=== PATIENT | female | born 1940 | race Caucasian/White ===

== ENCOUNTER 2017-12-16 14:22 | Outpatient (CLI) | payer MEDICARE, OTHER | END 2017-12-16 14:23 | disposition home or self-care (01) | LOC: BICMAMMO 14:22 | PROVIDERS: ATTEND Internal Medicine Hematology & Oncology | DX: Z08 Encounter for follow-up examination after completed treatment for malignant neoplasm (principal); Z85.3 Personal history of malignant neoplasm of breast; Z80.3 Family history of malignant neoplasm of breast | CPT/HCPCS: 77066; G0279 ==

== ENCOUNTER 2018-11-17 11:48 | Inpatient (IN) | payer MEDICARE, OTHER ==
[2018-11-17 12:41] LABS: #Basophils 0.1 thou/uL (0.0-0.2); #Eosinphils 0.2 thou/uL (0.0-0.7); #Lymphocytes 1.7 thou/uL (1.20-3.40); #Monocytes 0.9 thou/uL (0.11-0.59); #Neutrophils 12.6 thou/uL (1.40-6.50); %Basophils 0.4 % (0.0-1.0); %Eosinophils 1.1 % (0.0-10.0); %Lymphocytes 10.7 % (21.0-51.0); %Neutrophils 81.7 % (42.0-75.0); Hemoglobin 12.7 g/dL (12.0-16.0); Mean Corpuscular HGB CONC 33.5 g/dL (32.0-36.0); Mean Corpuscular Hemoglobin 31.9 pg (27.0-31.0); Mean Corpuscular Volume 95.2 fL (78.0-98.0); Mean Platelet Volume 6.9 fL (7.4-10.4); Platelet Count 369 thou/uL (130-400); RBC Distribution Width 11.3 % (11.5-14.5); Red Blood Cell (RBC) Count 3.99 mill/uL (4.20-5.40); White Blood Cell (WBC) Count 15.4 thou/uL (4.8-10.8)
[2018-11-17 12:58] LABS: ALT (SGPT) 42 U/L (8-55); AST (SGOT) 40 U/L (5-34); Albumin 3.9 g/dL (3.4-4.8); Alkaline Phosphatase 115 U/L (40-150); Anion Gap 9 mmol/L (10-20); BUN (Urea Nitrogen) 20 mg/dL (9.8-20.1); Bilirubin, Total 0.6 mg/dL (0.2-1.2); Calc. Creatinine Clearance 0 mL/min (70-130); Calcium 10.4 mg/dL (7.8-10.44); Carbon Dioxide 27 mmol/L (23-31); Chloride 101 mmol/L (98-107); Estimated GFR-MDRD 50; Globulin 3.3 g/dL (2.4-3.5); Glucose 111 mg/dL (83-110); Lipase 18 U/L (8-78); Potassium 3.7 mmol/L (3.5-5.1); Protein, Total 7.2 g/dL (6.0-8.3); Sodium 133 mmol/L (136-145)
[2018-11-17 13:47] LABS: Bilirubin Negative (Negative); Blood, Urine Negative (Negative); Clarity Clear (Clear); Glucose, Urine (Dipstick) Normal (Negative); Leukocyte 250 Leu/uL (Negative); Nitrite Negative (Negative); Protein, Urine (Dipstick) 10 mg/dL (Neg-Trace); RBC/HPF 0-3 HPF (0-3); Squamous Epithelial 0-3 HPF (0-3); Urobilinogen Normal mg/dL (Less than 2)
--- NOTE | 2018-11-17 14:06 | CT ---
CT ABDOMEN WITH CONTRAST CT PELVIS WITH CONTRAST: DATE: 11/17/2018 HISTORY: 78-year-old female with left lower quadrant abdominal pain and fever COMPARISON: None available TECHNIQUE: IV injection of iodinated contrast media: administered. Oral contrast media:Not administered FINDINGS: Numerous diverticula throughout sigmoid:. Moderate pericolonic fat stranding adjacent to sigmoid colo n and tiny amount of adjacent free fluid. Tiny amount of free fluid in the dependent portion of the pelvic cavity. No small bowel dilation. 1.6 cm right renal lower pole anterior parenchymal round lesi on with density of 14 Hounsfield units. Similar size lesion in anterior parenchyma of left renal upper-midpole with density of 16 Hounsfield units. 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 S mall renal cell carcinomas are less likely but not completely ruled out. No hydronephrosis. Atherosclerotic calcification without aneurysm of abdominal aorta. No mass or inflammation identified involving pancreas. No adrenal nodule. Liver and spleen unremarkable. No pericholecystic edema. What appears to be a nondilated appendix. No pneumoperitoneum. Lung bases are grossly clear. Levoscol iosis of lumbar spine with multilevel high-grade degenerative disc disease. IMPRESSION: 1. Evidence for colonic diverticulitis involving sigmoid colon. (In general for all cases of divertic ulitis, colonoscopy is recommended after the acute phase to rule out any possible underlying colon cancer, unless the patient has had a reasonably recent colonoscopy already). 2. High-grade lumbar spondylosis associated with levoscoliosis. 3. Approximately 1.6 cm round lesions, one in each kidney. Favored to represent hemorrhagic renal cys ts. Renal cell carcinoma significantly less likely. In order to rule out renal cell carcinoma, serial follow-up CTs of abdomen with and without contrast (renal mass protocol) is recommended, begin veronika in 6 months.
[2018-11-17 14:11] LABS: Bacteria/HPF 1+ HPF (None Seen)
[2018-11-17] MEDS ORDERED: metroNIDAZOLE 500 MG/100 ML BAG ONE (14:39)
[2018-11-17] MEDS ORDERED: HYDROcodone/Acetaminophen 7.5/325 mg Tablet PO PRN (14:49)
[2018-11-17] MEDS ORDERED: Ondansetron PF 4 MG/2 ML Vial IVP PRN (14:49)
[2018-11-17] MEDS ORDERED: Acetaminophen 325 MG TAB PO PRN (14:49)
[2018-11-17] MEDS ORDERED: Calcium Carbonate 500 MG ChewTAB PO PRN (14:49)
[2018-11-17] MEDS ORDERED: HYDROcodone/Acetaminophen 5/325 mg Tablet PO PRN (14:49)
[2018-11-17] MEDS ORDERED: Ondansetron ODT 4 MG TAB PO PRN (14:49)
[2018-11-17] MEDS ORDERED: hydrALAZINE 20 MG/ML VIAL SLOW IVP PRN (14:53)
[2018-11-17] MEDS ORDERED: Docusate 100 MG CAP PO PRN (14:53)
[2018-11-17] MEDS ORDERED: diphenhydrAMINE 25 MG CAP PO PRN (14:53)
[2018-11-17] MEDS ORDERED: ISOVUE-370 76%-LOCM 1 ML ONE (15:27)
--- NOTE | 2018-11-17 15:46 | PDOC.HHP ---
Hospitalist HPI - History of Present Illness Abdominal pain History of Present Illness: 78 year old female with PMHx of Afib on Eliquis, CHF, HTN, Breast CA s/p radiation/ chemo, and hypothyoid presents with abdominal pain. Patient with worsening abdominal pain, fever, and diarrhea over the past few days. Denies blood or black in stool. Has never been formally diagnosed with diverticulitis. No sick contacts. No bowel surgeries in the past. Patient was admitted at [facility] last weeks with a 4 day stay for UTI and fever. Patient was sent home with antibiotics though she does not know the names at this time. No other significant positive ROS. No chest pain, shortness of breath, palpitations, change in vision, syncope. Hospitalist ROS - Review of Systems All other systems reviewed; all pertinent +/- noted in HPI/Subj (A 10 point ROS conducted and negative aside of what mentioned in HPI.) Hospitalist History - Past Medical History Source: patient Cardiac: reports: AFIB, HTN, Valve insufficiency Pulmonary: reports: congestive heart failure. denies: CVA/TIA/stroke, COPD, heart attack AUDIO VISUAL SPECIALIST: denies: Seizure, TIA Gastrointestinal: denies: GI bleed, Inflam bowel disease Heme/Onc: reports: Cancer (Breast S/p partial mastectomy, chemo/ radiation.) Hepatobiliary: denies: Cholelithiasis, Hep A/B/C Psych: denies: Psychosis, Schizophrenia Musculoskeletal: reports: Osteoarthritis Rheumatologic: denies: Rheumatoid arthritis Infectious Disease: reports: Other (Recent UTI) Renal/: reports: UTI. denies: Chronic renal failure Endocrine: reports: Hypothyroidism. denies: Diabetes - Past Surgical History Past Surgical History: reports: Breast Biopsy (partial mastectomy), Cataract Removal, Total Knee Replacement - Family History Family History: reports: hypertension. denies: diabetes mellitus - Social History Smoking Status: Former smoker Tobacco Type: cigarettes Alcohol: reports: None Drugs: reports: none Living Situation: With Family Activity level: independent ambulation - Exam General Appearance: ill appearing Eye: PERRL, anicteric sclera Eye - other findings: EOMI ENT: no oropharyngeal lesions, moist mucosa Neck: supple, symmetric Heart: no gallops, no rubs, normal peripheral pulses Heart - other findings: S1 and S2 present, loud systolic murmur Respiratory: CTAB, no wheezes, no rales, no ronchi, normal chest expansion Gastrointestinal: soft, non-tender, non-distended, no guarding, no rigidity Extremities: no edema Skin: no lesions, no rashes Neurological: CN's grossly intact, no weakness, no focal deficits Musculoskeletal: normal tone, no muscle wasting Psychiatric: normal affect, A&O x 3 Hospitalist Results - Labs Result Diagrams: 11/17/18 12:23 11/17/18 12:23 Lab results: WBC 15.4 thou/uL (4.8-10.8) H 11/17/18 12:23 Hgb 12.7 g/dL (12.0-16.0) 11/17/18 12:23 Hct 38.0 % (36.0-47.0) 11/17/18 12:23 MCV 95.2 fL (78.0-98.0) 11/17/18 12:23 Plt Count 369 thou/uL (130-400) 11/17/18 12:23 Neutrophils % 81.7 % (42.0-75.0) H 11/17/18 12:23 Sodium 133 mmol/L (136-145) L 11/17/18 12:23 Potassium 3.7 mmol/L (3.5-5.1) 11/17/18 12:23 Chloride 101 mmol/L (98-107) 11/17/18 12:23 Carbon Dioxide 27 mmol/L (23-31) 11/17/18 12:23 BUN 20 mg/dL (9.8-20.1) 11/17/18 12:23 Creatinine 1.07 mg/dL (0.6-1.1) 11/17/18 12:23 Glucose 111 mg/dL (83-110) H 11/17/18 12:23 Lactic Acid 1.3 mmol/L (0.5-2.2) 11/17/18 14:05 Calcium 10.4 mg/dL (7.8-10.44) 11/17/18 12:23 Total Bilirubin 0.6 mg/dL (0.2-1.2) 11/17/18 12:23 AST 40 U/L (5-34) H 11/17/18 12:23 ALT 42 U/L (8-55) 11/17/18 12:23 Alkaline Phosphatase 115 U/L (40-150) 11/17/18 12:23 Serum Total Protein 7.2 g/dL (6.0-8.3) 11/17/18 12:23 Albumin 3.9 g/dL (3.4-4.8) 11/17/18 12:23 Lipase 18 U/L (8-78) 11/17/18 12:23 Urine Ketones Negative mg/dL (Negative) 11/17/18 13:29 Urine Blood Negative (Negative) 11/17/18 13:29 Urine Nitrite Negative (Negative) 11/17/18 13:29 Ur Leukocyte Esterase 250 Bri/uL (Negative) A 11/17/18 13:29 Urine RBC 0-3 HPF (0-3) 11/17/18 13:29 Urine WBC 11-20 HPF (0-3) A 11/17/18 13:29 Ur Squamous Epith Cells 0-3 HPF (0-3) 11/17/18 13:29 Urine Bacteria 1+ HPF (None Seen) 11/17/18 13:29 - Radiology Interpretation CT scan - abdomen Status: image reviewed by ca Hospitalist H&P A/P - Problem (1) Acute diverticulitis Code(s): K57.92 - DVTRCLI OF INTEST, PART UNSP, W/O PERF OR ABSCESS W/O BLEED Status: Acute (2) Abdominal pain Code(s): R10.9 - UNSPECIFIED ABDOMINAL PAIN Status: Acute (3) Fever Code(s): R50.9 - FEVER, UNSPECIFIED Status: Acute (4) Sepsis Code(s): A41.9 - SEPSIS, UNSPECIFIED ORGANISM Status: Acute (5) HTN (hypertension) Code(s): I10 - ESSENTIAL (PRIMARY) HYPERTENSION Status: Chronic (6) CHF (congestive heart failure) Code(s): I50.9 - HEART FAILURE, UNSPECIFIED Status: Chronic (7) Afib Code(s): I48.91 - UNSPECIFIED ATRIAL FIBRILLATION Status: Chronic (8) Hypothyroid Code(s): E03.9 - HYPOTHYROIDISM, UNSPECIFIED Status: Chronic (9) Breast cancer Status: Resolved - Plan Plan: Plan: Admit to medical/ surgical unit IV ABX specific for gut kim associated with acute diverticulitis IV Flagyl/ Levaquin CT abdomen noted Will need outpatient C-scope in 6-8 weeks Patient had appointment with cardiology tomorrow, will request courtesy consult Recent echo in outpatient clinic for murmur, loud systolic murmur sounds like aortic stenosis - though not symptomatic at this time Continue home meds Pain control Replace electrolytes as needed GI and DVT PPX
[2018-11-17] MEDS ORDERED: Morphine 4 MG/ML VIAL ONE (16:44)
[2018-11-17] MEDS ORDERED: Ondansetron PF 4 MG/2 ML Vial ONE (16:44)
[2018-11-17 17:54] VITALS: BMI 27.9
[2018-11-17] MEDS ORDERED: Apixaban 5 MG TAB PO SCH (21:00)
[2018-11-17] MEDS ORDERED: Morphine 2 MG/ML SYRINGE SLOW IVP SCH (21:30)
[2018-11-17] MEDS ORDERED: metroNIDAZOLE 500 MG in Premix Bag 1 BAG IVPB SCH (22:00)
[2018-11-18] MEDS ORDERED: Calcium Carbonate 500 MG ChewTAB PO PRN (04:00)
[2018-11-18] MEDS ORDERED: Ondansetron PF 4 MG/2 ML Vial IVP PRN (04:01)
[2018-11-18] MEDS ORDERED: Ondansetron ODT 4 MG TAB PO PRN (04:01)
[2018-11-18] MEDS ORDERED: diphenhydrAMINE 25 MG CAP PO PRN (04:01)
[2018-11-18] MEDS ORDERED: hydrALAZINE 20 MG/ML VIAL SLOW IVP PRN (04:01)
[2018-11-18] MEDS ORDERED: Docusate 100 MG CAP PO PRN (04:01)
[2018-11-18] MEDS: Levothyroxine Sodium 100 MCG TAB PO SCH (05:29)
[2018-11-18] MEDS: metroNIDAZOLE 500 MG in Premix Bag 1 BAG IVPB SCH ×3 (05:29→21:58)
[2018-11-18 05:39] LABS: #Basophils 0.1 thou/uL (0.0-0.2); #Eosinphils 0.6 thou/uL (0.0-0.7); #Lymphocytes 2.7 thou/uL (1.20-3.40); #Neutrophils 8.2 thou/uL (1.40-6.50); %Basophils 0.6 % (0.0-1.0); %Eosinophils 4.5 % (0.0-10.0); %Lymphocytes 21.4 % (21.0-51.0); %Monocytes 7.7 % (0.0-10.0); %Neutrophils 65.7 % (42.0-75.0); Hemoglobin 11.1 g/dL (12.0-16.0); Mean Corpuscular HGB CONC 32.3 g/dL (32.0-36.0); Mean Corpuscular Hemoglobin 31.3 pg (27.0-31.0); Mean Corpuscular Volume 96.7 fL (78.0-98.0); Mean Platelet Volume 6.7 fL (7.4-10.4); Platelet Count 346 thou/uL (130-400); RBC Distribution Width 11.2 % (11.5-14.5); Red Blood Cell (RBC) Count 3.56 mill/uL (4.20-5.40); White Blood Cell (WBC) Count 12.4 thou/uL (4.8-10.8)
[2018-11-18] MEDS ORDERED: Levothyroxine Sodium 100 MCG TAB PO SCH (06:00)
[2018-11-18 06:10] LABS: Anion Gap 9 mmol/L (10-20); BUN (Urea Nitrogen) 14 mg/dL (9.8-20.1); Calc. Creatinine Clearance 79 mL/min (70-130); Calcium 9.9 mg/dL (7.8-10.44); Carbon Dioxide 27 mmol/L (23-31); Chloride 103 mmol/L (98-107); Estimated GFR-MDRD 73; Glucose 85 mg/dL (83-110); Potassium 4.9 mmol/L (3.5-5.1); Sodium 134 mmol/L (136-145)
[2018-11-18] MEDS: Acetaminophen 325 MG TAB PO PRN ×2 (07:48→16:00)
[2018-11-18] MEDS: Apixaban 5 MG TAB PO SCH ×2 (07:49→20:34)
[2018-11-18] MEDS ORDERED: Losartan 25 MG TAB PO SCH ×5 (09:00→21:00)
[2018-11-18] MEDS ORDERED: Enoxaparin Sodium 40 MG/0.4 ML SYRINGE SC SCH (09:00)
[2018-11-18] MEDS ORDERED: Anastrozole 1 MG TAB PO SCH ×2 (09:00)
[2018-11-18] MEDS ORDERED: Carvedilol 25 MG TAB PO SCH ×2 (09:00)
[2018-11-18] MEDS: HYDROcodone/Acetaminophen 7.5/325 mg Tablet PO PRN ×2 (09:53→20:37)
--- NOTE | 2018-11-18 12:14 | PDOC.HOSPP ---
- Subjective Subjective: Seen and examined. Less abdominal pain. Low grade fever overnight. Sitting up in bed feeling dizzy, low BP this AM. Unable to work with PT. Will Adjust BP regimen. - Objective Vital Signs & Weight: Vital Signs (12 hours) Temp Pulse Resp BP BP BP BP 11/18/18 11:34 97.9 F 71 18 97/63 11/18/18 10:39 87/56 L 85/53 L 11/18/18 09:03 98.8 F 20 104/67 11/18/18 07:45 11/18/18 07:27 99.2 F 80 18 130/78 11/18/18 04:52 99.0 F 79 16 107/66 11/18/18 01:00 99.7 F H 11/18/18 00:16 100.2 F H 90 16 117/73 Pulse Ox 11/18/18 11:34 94 L 11/18/18 10:39 11/18/18 09:03 11/18/18 07:45 94 L 11/18/18 07:27 92 L 11/18/18 04:52 96 11/18/18 01:00 11/18/18 00:16 92 L Weight Weight 184 lb I&O: 11/17/18 11/18/18 11/19/18 06:59 06:59 06:59 Intake Total 800 Balance 800 Result Diagrams: 11/18/18 05:07 11/18/18 05:06 Radiology Reviewed by me: Yes (CT abdomen) Hospitalist ROS - Review of Systems All other systems reviewed; all pertinent +/- noted in HPI/Subj - Medication Medications: Active Medications Generic Name Dose Route Start Last Admin Trade Name Freq PRN Reason Stop Dose Admin Acetaminophen 650 mg 11/18/18 04:00 11/18/18 07:48 Tylenol PO 650 mg Q4H PRN Administration Headache/Fever/Mild Pain (1-3) Hydrocodone Bitart/Acetaminophen 1 tab 11/18/18 04:00 11/18/18 09:53 [place] 7.5/325 PO 1 tab Q4H PRN Administration Severe Pain (7-10) Apixaban 5 mg 11/18/18 09:00 11/18/18 07:49 Eliquis PO 5 mg BID JAIRO Administration Carvedilol 25 mg 11/18/18 09:00 11/18/18 07:48 Coreg PO 25 mg DAILY JAIRO Administration Metronidazole 500 mg/ Device 100 mls @ 100 mls/hr 11/18/18 06:00 11/18/18 05: 29 IVPB 100 mls Q8HR JAIRO Administration Levothyroxine Sodium 100 mcg 11/18/18 06:00 11/18/18 05:29 Synthroid PO 100 mcg 0600 JAIRO Administration Pantoprazole Sodium 40 mg 11/18/18 09:00 11/18/18 07:48 Protonix PO 40 mg DAILY JAIRO Administration Sertraline HCl 100 mg 11/18/18 09:00 11/18/18 07:48 Zoloft PO 100 mg DAILY JAIRO Administration - Exam General Appearance: NAD, awake alert Eye: PERRL Eye - other findings: EOMI ENT: normocephalic atraumatic, moist mucosa Neck: supple, symmetric, no lymphadenopathy Heart: RRR, no gallops, no rubs, normal peripheral pulses Heart - other findings: Loud systolic murmur Respiratory: CTAB, no wheezes, no rales, no ronchi, normal chest expansion Gastrointestinal: soft, non-distended, normal bowel sounds, no palpable masses, no guarding, no rigidity, tender to palpation Extremities: no cyanosis, no edema Skin: no lesions, no rashes Neurological: CN's grossly intact, no weakness, no focal deficits Musculoskeletal: generalized weakness Psychiatric: normal affect, A&O x 3 Hosp A/P (1) Acute diverticulitis Code(s): K57.92 - DVTRCLI OF INTEST, PART UNSP, W/O PERF OR ABSCESS W/O BLEED Status: Acute (2) Abdominal pain Code(s): R10.9 - UNSPECIFIED ABDOMINAL PAIN Status: Acute (3) Fever Code(s): R50.9 - FEVER, UNSPECIFIED Status: Acute (4) Sepsis Code(s): A41.9 - SEPSIS, UNSPECIFIED ORGANISM Status: Acute (5) HTN (hypertension) Code(s): I10 - ESSENTIAL (PRIMARY) HYPERTENSION Status: Chronic (6) CHF (congestive heart failure) Code(s): I50.9 - HEART FAILURE, UNSPECIFIED Status: Chronic (7) Afib Code(s): I48.91 - UNSPECIFIED ATRIAL FIBRILLATION Status: Chronic (8) Hypothyroid Code(s): E03.9 - HYPOTHYROIDISM, UNSPECIFIED Status: Chronic (9) Breast cancer Status: Resolved - Plan Plan: Med/ surg unit Responding to IV flagyl and Levaquin WBC downtrending Low grade fever overnight Clinically improving CT abd/pelvis noted Will need outpatient C-scope in 6-8 weeks Cardiology consult, recommendations appreciated Decreased both Carvedilol and Losartan as BP was 85 systolic when I was in the room this morning and patient is feeling dizzy/ light headed Echo recently completed in outpatient clinic, loud systolic murmur concerning for Aortic stenosis Continue home meds as able Pain control Replace electrolytes as needed GI and DVT PPX
[2018-11-18] MEDS: Carvedilol 6.25 MG TAB PO SCH (17:21)
[2018-11-18] MEDS: Anastrozole 1 MG TAB PO SCH (20:34)
--- NOTE | 2018-11-19 00:49 | CON ---
DATE OF CONSULTATION: 11/18/2018 INDICATION FOR CONSULTATION: This is a 78-year-old female with a history of intermittent atrial fibrillation, who has undergone ablation several times. She also has history of hypertension, but is now having episodes of hypotension. She had a recent urinary tract infection and also has a history of diverticulitis and intermittent fevers. HISTORY OF PRESENT ILLNESS: This is a very pleasant 78-year-old female, who has been followed by Dr. Antony Salguero, has presented to the hospital. She states she recently spent several days at [facility] due to urinary tract infection and other possible viral infection. This was actually last week. She then went home, apparently was not doing better, she then was transferred to [facility] where she is now being seen due to her history of atrial fibrillation. At this time, she remains in a regular rhythm. She has no complaints from a cardiac standpoint. Her blood pressure has been on the low side normally. She is hypertensive. She is doing otherwise quite well. She has had 3 ablations in the past for atrial fibrillation and now remains stable. She does state that occasionally she does get some intermittent palpitations, but otherwise is stable. She does have an aortic murmur, which was most likely mild aortic valve sclerosis and also possibly mild mitral valve regurgitation. Her last echocardiogram was last month. We will try to obtain those records from [facility] from Dr. Antony Salguero's office. She has had some left leg DVTs several times and the left leg is larger than the right, but otherwise she remains stable and is unremarkable and has no cardiac complaints at this time. PAST MEDICAL HISTORY: Please refer to the notes dictated by my nurse practitioner. SOCIAL HISTORY: Please refer to the notes dictated by my nurse practitioner. FAMILY HISTORY: Please refer to the notes dictated by my nurse practitioner. REVIEW OF SYSTEMS: Please refer to the notes dictated by my nurse practitioner. MEDICATIONS: Please refer to the notes dictated by my nurse practitioner. ALLERGIES: PLEASE REFER TO THE NOTES DICTATED BY MY NURSE PRACTITIONER. PHYSICAL EXAMINATION: GENERAL: Reveals a well-developed, well-nourished female, in no acute distress. VITAL SIGNS: Temperature is 99.9, blood pressure is 133/80, heart rate is 94 beats per minute and is regular, respiratory rate is 20. HEENT: Unremarkable. CHEST: Clear to auscultation. CARDIOVASCULAR: Reveals regular rate and rhythm. She does have a systolic murmur that is noted above the aortic area radiating throughout the entire precordium and also systolic murmur at the apex. ABDOMEN: Soft. She does have some mild tenderness in the lower abdominal area. Positive bowel sounds are present. EXTREMITIES: Showed no clubbing or cyanosis. The left leg is larger than the right leg, but no significant edema was noted. NEUROLOGIC: She appears to be stable. LABORATORY DATA AND EKGS: Please refer to the notes dictated by the nurse practitioner. IMPRESSION: Intermittent atrial fibrillation for which she remains in sinus rhythm at this time. We will continue her present medications unless she becomes n.p.o. Also, we will continue with her Coreg as well as the Eliquis unless an operation is indicated, then we will need to stop the at least 24 hours. For her other medical diagnosis, she is to be treated by the medical staff. As far as her aortic valve stenosis, we will await the echocardiogram. I do not believe this is critical at this time and she is asymptomatic. Job ID: [id number]
[2018-11-19] MEDS: Levothyroxine Sodium 100 MCG TAB PO SCH (05:06)
[2018-11-19] MEDS: metroNIDAZOLE 500 MG in Premix Bag 1 BAG IVPB SCH ×3 (05:10→21:58)
[2018-11-19 06:04] LABS: #Basophils 0.1 thou/uL (0.0-0.2); #Eosinphils 0.5 thou/uL (0.0-0.7); #Lymphocytes 1.8 thou/uL (1.20-3.40); #Monocytes 0.7 thou/uL (0.11-0.59); #Neutrophils 5.8 thou/uL (1.40-6.50); %Basophils 0.7 % (0.0-1.0); %Eosinophils 5.3 % (0.0-10.0); %Lymphocytes 20.4 % (21.0-51.0); %Monocytes 7.7 % (0.0-10.0); %Neutrophils 65.9 % (42.0-75.0); Hemoglobin 11.3 g/dL (12.0-16.0); Mean Corpuscular HGB CONC 33.6 g/dL (32.0-36.0); Mean Corpuscular Hemoglobin 32.5 pg (27.0-31.0); Mean Corpuscular Volume 96.6 fL (78.0-98.0); Mean Platelet Volume 6.8 fL (7.4-10.4); Platelet Count 332 thou/uL (130-400); RBC Distribution Width 11.2 % (11.5-14.5); Red Blood Cell (RBC) Count 3.47 mill/uL (4.20-5.40); White Blood Cell (WBC) Count 8.7 thou/uL (4.8-10.8)
[2018-11-19 06:28] LABS: Anion Gap 10 mmol/L (10-20); BUN (Urea Nitrogen) 10 mg/dL (9.8-20.1); Calc. Creatinine Clearance 85 mL/min (70-130); Calcium 10.2 mg/dL (7.8-10.44); Carbon Dioxide 27 mmol/L (23-31); Chloride 102 mmol/L (98-107); Estimated GFR-MDRD 78; Glucose 84 mg/dL (83-110); Potassium 4.4 mmol/L (3.5-5.1); Sodium 135 mmol/L (136-145)
[2018-11-19] MEDS: Carvedilol 6.25 MG TAB PO SCH (08:01)
[2018-11-19] MEDS: Apixaban 5 MG TAB PO SCH ×2 (08:01→20:54)
[2018-11-19] MEDS ORDERED: Carvedilol 25 MG TAB PO SCH ×2 (09:00)
[2018-11-19] MEDS: HYDROcodone/Acetaminophen 5/325 mg Tablet PO PRN ×2 (09:28→20:57)
--- NOTE | 2018-11-19 09:49 | CON ---
DATE OF CONSULTATION: PRIMARY TEST TUBE MAKER: Dr. Salguero. The patient's primary fill manager here at the [facility] is Dr. Daniela Hennessy. REASON FOR CONSULT: History of atrial fibrillation, aortic valve stenosis, continue the care. HISTORY OF PRESENT ILLNESS: Ms. Adorno is a 78-year-old female with a significant history of atrial fibrillation with atrial fibrillation ablation x3, hypertension, aortic valve insufficiency, breast cancer with left mastectomy with chemo and radiation, UTI, and hypothyroidism. The patient presented to the emergency department here for worsening of abdominal pain, fever, and diarrhea over the past few days. The patient was found to have a diverticulitis here. Prior to this admission, the patient was admitted at the [facility] last week for 4 days for the UTI and fever. The patient was sent home with antibiotic. The patient denied palpitation, fluttering, dizziness, lightheadedness, chest pain, shortness of breath, or any other cardiac complaints. The patient's blood pressure at home has been 100 to 110s with heart rate of 70s to 80s. She has seen Dr. Salguero at the [facility] for significant medical history of atrial fibrillation, hypertension, and aortic valve stenosis per patient. The patient had echocardiogram done at Dr. Salguero's last month for a cardiac murmur, and the patient had a stress test a few years ago which was normal per the patient. Prior to this admission and during initial Cardiology assessment, the patient denied chest pain, heaviness, sinus, shortness of breath, palpitation, fluttering in her chest, shortness of breath, fatigue, or any other cardiac complaints. She started having abdomen discomfort 2 weeks ago. Till then, she was very active. She does water aerobics 3 times a week prior to this admission. PAST MEDICAL HISTORY: Atrial fibrillation with ablation x3, last ablation was 2 to 3 years ago, hypertension, valve insufficiency, left breast cancer, osteoarthritis, UTI, hypothyroidism, and a cyst in the kidney, and she is supposed to see Dr. Moore for the finding. PAST SURGICAL HISTORY: Left breast biopsy and partial mastectomy, cataract removal, left total knee replacement, thyroidectomy. The patient had atrial fibrillation ablation x3, last one 2 to 3 years ago. FAMILY HISTORY: The patient's father has history of CVA x2. The patient's mother has a history of pacemaker placement and congestive heart failure. The patient's sister due to colon cancer. SOCIAL HISTORY: She is . She is living alone, but she has 2 children, who are living well. One of her children living in town that is 2 houses away from her address. She is an ex tobacco abuser, quit in 2010. She used to smoke 3 to 4 cigarettes a day. She drinks 1 glass around once a month at most. The patient used to exercise water aerobic exercises 3 times a week until 2 weeks ago when she started having abdominal discomfort. She drinks a Diet Coke a day. ALLERGIES: NO KNOWN DRUG ALLERGY. HOME MEDICATIONS: 1. Zoloft 100 mg once a day. 2. Losartan 100 mg once a day. 3. Synthroid 100 mcg once a day. 4. Nexium 20 mg once a day. 5. Carvedilol CR 20 mg once a day, not 25 mg once a day. 6. Arimidex 1 mg once a day. 7. Excedrin Extra Strength capsule 250 mg daily as needed. 8. Eliquis, she is supposed to take an Eliquis here, 5 mg twice a day. REVIEW OF SYSTEMS: A 12-point review of systems negative unless otherwise mentioned in the HPI. PHYSICAL EXAMINATION: VITAL SIGNS: Blood pressure 1 o'clock today is 90/39, temperature 97.9, pulse is 71, O2 saturation 94% on room air, and respiratory rate 18. GENERAL: The patient is alert and oriented x4, not in acute distress. HEAD: Normocephalic and atraumatic. EYES: Extraocular muscle movement intact. ENT AND MOUTH: Nasal and oral mucosa moist without lesion. NECK: Supple. Normal range of motion. No JVD. LUNGS: Clear to auscultate bilaterally. No wheezing, rales, or rhonchi noted. CARDIOVASCULAR: Regular rate and rhythm. Normal S1, S2. There is no S3 or S4. There is significant murmur to the bilateral mediastinal borders which radiate to the right carotid arteries. EXTREMITIES: 2+ pulses in the bilateral upper and lower extremities. No edema in lower extremities. The patient denied claudication. ABDOMEN: Bowel sounds are very hypoactive. The patient refused to palpate her stomach because they are very tender at this moment. SKIN: Warm and dry. No rash, lesion, or erythema noted. NEUROLOGIC: The patient is alert and oriented x4. Not in any acute distress. PSYCHIATRIC: The patient's mood is appropriate. LABORATORY DATA: WBC 12.4, hemoglobin 11.1, hematocrit 34.4, and platelet 346. Sodium 134, potassium 4.9, BUN 14, creatinine 0.77, and calcium 9.9. AST 40, ALT 42. Urinalysis showing leukocytes 250 and urine wbc's 11 to 20, but no nitrite or blood in the urine. Abdomen and pelvis CT scan shows colonic diverticulitis, but she has not had any BM since this admission. High-grade lumbar spondylosis associated with levoscoliosis, 1.6 cm round lesion, possible hemorrhagic renal cyst. A 12-point EKG at the ER shows sinus rhythm with heart rate of 75, no ST-segment change or T-wave inversion. ASSESSMENT AND PLAN: 1. Hypotension. According to the patient, she takes the carvedilol CR 20 mg which is equivalent to the 6.25 mg twice a day. However, she took 25 mg this morning, which is a possible reason her blood pressure is low this morning. The patient's last blood pressure was 113 on the systolic side. The patient denied dizziness or lightheadedness at this moment, but the patient felt weakness in this morning due to the hypotension. Medication was changed to 6.25 mg twice a day, which is equivalent to the carvedilol CR 20 mg once a day. Due to the griggs, the patient likes to have carvedilol twice a day instead of once a day if possible when patient discharged from the hospital. The patient's losartan was already decreased to 50 mg once a day, it is going to be tonight. We would like to continue to monitor her medication and vital signs. 2. History of atrial fibrillation. The patient's heart rate is regular to auscultate. A 12-lead EKG at the ER shows sinus rhythm with heart rate of 75. The patient has been on carvedilol and Eliquis 5 mg twice a day. The patient denied any blood in the stool or urine. She fell at home. We would like to continue current medication at this moment. 3. Hypotension. Her blood pressure today is stable at this moment. The patient's medications are already adjusted. Hopefully, the patient's vital signs are stable through the night. 4. New finding of diverticulitis. The patient has not had diarrhea since the patient admitted to this hospital, but the patient still continued to complain of the discomfort in the lower extremities, which is managed by patient's primary care doctor. 5. Urinary tract infection. The patient has been on antibiotic, which is managed by primary care doctor. 6. Hypothyroidism. She is on thyroid medicine at this moment. 7. Valve insufficiency. We are going to get the echo results from Dr. Salguero's office as soon as possible. Thank you very much for Cardiology Service to participate in the care of this patient. We will follow along the patient's care team and make further recommendation as appropriate. Job ID: [id number]
--- NOTE | 2018-11-19 11:15 | PDOC.CPN ---
- Subjective Date: 11/19/18 Time: 11:15 Interval history: The pt seen and examined. NO overnight events. No cardiac complaints. - Review of Systems Gastrointestinal: reports: abd pain - Objective Allergies/Adverse Reactions: Allergies Allergy/AdvReac Type Severity Reaction Status Date / Time No Known Allergies Allergy Verified 11/17/18 17:40 Visit Medications: Current Medications Acetaminophen (Tylenol) 650 mg PO Q4H PRN PRN Reason: Headache/Fever/Mild Pain (1-3) Last Admin: 11/18/18 16:00 Dose: 650 mg Hydrocodone Bitart/Acetaminophen ([place] 5/325) 1 tab PO Q4H PRN PRN Reason: Moderate Pain (4-6) Last Admin: 11/19/18 09:28 Dose: 1 tab Hydrocodone Bitart/Acetaminophen ([place] 7.5/325) 1 tab PO Q4H PRN PRN Reason: Severe Pain (7-10) Last Admin: 11/18/18 20:37 Dose: 1 tab Albuterol/Ipratropium (Duoneb) 3 ml NEB Q4H PRN PRN Reason: SOB &/or Wheezing Anastrozole (Arimidex) 1 mg PO [facility] Last Admin: 11/18/18 20:34 Dose: 1 mg Apixaban (Eliquis) 5 mg PO BID [facility] Last Admin: 11/19/18 08:01 Dose: 5 mg Calcium Carbonate (Tums) 1,000 mg PO Q4H PRN PRN Reason: Heartburn or Indigestion Carvedilol (Coreg) 6.25 mg PO BID-[facility] Last Admin: 11/19/18 08:01 Dose: 6.25 mg Diphenhydramine HCl (Benadryl) 25 mg PO Q6H PRN PRN Reason: Itching & Insomnia Docusate Sodium (Colace) 100 mg PO BIDPRN PRN PRN Reason: Constipation Hydralazine HCl (Apresoline) 10 mg SLOW IVP Q4H PRN PRN Reason: Hypertension (SBP >180) Metronidazole 500 mg/ Device 100 mls @ 100 mls/hr IVPB Q8HR COUNT INCLUDES [facility] Last Admin: 11/19/18 05:10 Dose: 100 mls Levofloxacin 500 mg/ Device 100 mls @ 100 mls/hr IVPB 1500 JAIRO Last Admin: 11/18/18 14:33 Dose: 100 mls Levothyroxine Sodium (Synthroid) 100 mcg PO 0600 COUNT [facility]CLUDES [facility] Last Admin: 11/19/18 05:06 Dose: 100 mcg Losartan Potassium (Cozaar) 50 mg PO HS COUNT [facility]CLUDES [facility] Last Admin: 11/18/18 20:36 Dose: 50 mg Miscellaneous Medication (Pharmacy To Dose) 0 each IVPB PRN PRN PRN Reason: PHARMACY TO DOSE Ondansetron HCl (Zofran Odt) 4 mg PO Q6H PRN PRN Reason: Nausea/Vomiting Ondansetron HCl (Zofran) 4 mg IVP Q6H PRN PRN Reason: Nausea/Vomiting Pantoprazole Sodium (Protonix) 40 mg PO DAILY COUNT [facility] Last Admin: 11/19/18 08:02 Dose: 40 mg Sertraline HCl (Zoloft) 100 mg PO DAILY COUNT [facility]CLUDES [facility] Last Admin: 11/19/18 08:01 Dose: 100 mg Vital Signs & Weight: Vital Signs Temp Pulse Resp BP BP BP Pulse Ox 11/19/18 08:01 152/84 H 11/19/18 08:00 94 L 11/19/18 07:25 99.7 F H 83 18 152/84 H 94 L 11/19/18 04:00 98.9 F 77 18 127/74 93 L 11/19/18 00:00 98.7 F 74 18 102/67 93 L Weight 184 lb - Physical Exam HEENT: mucus membranes moist Neck: supple neck Cardiac: regular rate and rhythm, S1/S2 Lungs: clear to auscultation - Labs Result Diagrams: 11/20/18 08:07 11/19/18 05:04 - Assessment/Plan Assessment/Plan: 1. Prox Afib with Afib RFA x3 by Dr Salguero at [facility] heart - well controlled HR; On Coreg and Eliquis 5mg BID; 2. cute diverticulitis - managed by PC 3. HTN - stable with current medication; will change Losartan from 50mg to 100mg qd 4. Valve inefficiency - waiting for Echo result 5. Hypothyroid - MAR reviewed * The pt had Echo at Dr Salguero's office 1 month ago; waiting for the result Pt. seen and eval. by me. I agree with the A/P by the [employer]. Pt. denies any cardiac complaints. Chest clear. RRR. gjmays *
--- NOTE | 2018-11-19 12:43 | PDOC.HOSPP ---
- Subjective Subjective: Seen and examined. Abdominal pain improved. Low grade temperature overnight. Breathing well on room air. Slept well. Clinically improving. - Objective Vital Signs & Weight: Vital Signs (12 hours) Temp Pulse Resp BP BP BP Pulse Ox 11/19/18 11:17 99.3 F 11/19/18 08:01 152/84 H 11/19/18 08:00 94 L 11/19/18 07:25 99.7 F H 83 18 152/84 H 94 L 11/19/18 04:00 98.9 F 77 18 127/74 93 L Weight Weight 184 lb I&O: 11/18/18 11/19/18 11/20/18 06:59 06:59 06:59 Intake Total 800 1979 Balance 800 1979 Result Diagrams: 11/19/18 05:04 11/19/18 05:04 Hospitalist ROS - Review of Systems All other systems reviewed; all pertinent +/- noted in HPI/Subj - Medication Medications: Active Medications Generic Name Dose Route Start Last Admin Trade Name Freq PRN Reason Stop Dose Admin Acetaminophen 650 mg 11/18/18 04:00 11/18/18 16:00 Tylenol PO 650 mg Q4H PRN Administration Headache/Fever/Mild Pain (1-3) Hydrocodone Bitart/Acetaminophen 1 tab 11/18/18 04:00 11/19/18 09:28 [place] 5/325 PO 1 tab Q4H PRN Administration Moderate Pain (4-6) Hydrocodone Bitart/Acetaminophen 1 tab 11/18/18 04:00 11/18/18 20:37 [place] 7.5/325 PO 1 tab Q4H PRN Administration Severe Pain (7-10) Anastrozole 1 mg 11/18/18 21:00 11/18/18 20:34 Arimidex PO 1 mg HS JAIRO Administration Apixaban 5 mg 11/18/18 09:00 11/19/18 08:01 Eliquis PO 5 mg BID JAIRO Administration Metronidazole 500 mg/ Device 100 mls @ 100 mls/hr 11/18/18 06:00 11/19/18 05: 10 IVPB 100 mls Q8HR JAIRO Administration Levofloxacin 500 mg/ Device 100 mls @ 100 mls/hr 11/18/18 15:00 11/18/18 14: 33 IVPB 100 mls 1500 JAIRO Administration Levothyroxine Sodium 100 mcg 11/18/18 06:00 11/19/18 05:06 Synthroid PO 100 mcg 0600 JAIRO Administration Losartan Potassium 50 mg 11/18/18 21:00 11/18/18 20:36 Cozaar PO 50 mg HS JAIRO Administration Pantoprazole Sodium 40 mg 11/18/18 09:00 11/19/18 08:02 Protonix PO 40 mg DAILY JAIRO Administration Sertraline HCl 100 mg 11/18/18 09:00 11/19/18 08:01 Zoloft PO 100 mg DAILY JAIRO Administration - Exam General Appearance: NAD Eye: PERRL, anicteric sclera Eye - other findings: EOMI ENT: no oropharyngeal lesions, moist mucosa Neck: supple, symmetric Heart: no gallops, no rubs, irregular Heart - other findings: Regular rate. Loud systolic murmur Respiratory: CTAB, no wheezes, no rales, no ronchi, no tachypnea Gastrointestinal: soft, non-distended, normal bowel sounds, no palpable masses, no guarding, no rigidity, tender to palpation Extremities: no edema Skin: no lesions, no rashes Neurological: CN's grossly intact, no focal deficits Musculoskeletal: normal strength, no muscle wasting Psychiatric: normal affect, A&O x 3 Hosp A/P (1) Acute diverticulitis Code(s): K57.92 - DVTRCLI OF INTEST, PART UNSP, W/O PERF OR ABSCESS W/O BLEED Status: Acute (2) Abdominal pain Code(s): R10.9 - UNSPECIFIED ABDOMINAL PAIN Status: Acute (3) Fever Code(s): R50.9 - FEVER, UNSPECIFIED Status: Acute (4) Sepsis Code(s): A41.9 - SEPSIS, UNSPECIFIED ORGANISM Status: Acute (5) HTN (hypertension) Code(s): I10 - ESSENTIAL (PRIMARY) HYPERTENSION Status: Chronic (6) CHF (congestive heart failure) Code(s): I50.9 - HEART FAILURE, UNSPECIFIED Status: Chronic (7) Afib Code(s): I48.91 - UNSPECIFIED ATRIAL FIBRILLATION Status: Chronic (8) Hypothyroid Code(s): E03.9 - HYPOTHYROIDISM, UNSPECIFIED Status: Chronic (9) Breast cancer Status: Resolved - Plan Plan: Med/ surg unit Responding to IV flagyl and Levaquin WBC normalized Low grade temperature overnight Clinically improving CT abd/pelvis noted Will need outpatient C-scope in 6-8 weeks Cardiology consult, recommendations appreciated Decreased both Carvedilol and Losartan. BP having highs and low in past 48 hours , a slow titration of medications by cardiology is appreciated. Will need a BP log and closer follow up with PCP in outpatient setting Echo recently completed in outpatient clinic, loud systolic murmur concerning for Aortic stenosis Continue home meds as able Pain control Replace electrolytes as needed GI and DVT PPX
[2018-11-19] MEDS: Anastrozole 1 MG TAB PO SCH (20:54)
[2018-11-19] MEDS: Losartan 25 MG TAB PO SCH (20:54)
[2018-11-19] MEDS ORDERED: Carvedilol 6.25 MG TAB PO SCH (21:00)
[2018-11-19] MEDS ORDERED: Carvedilol 3.125 MG TAB PO SCH (21:00)
[2018-11-20] MEDS ORDERED: Carvedilol 3.125 MG TAB PO SCH (00:30)
[2018-11-20] MEDS: Acetaminophen 325 MG TAB PO PRN ×4 (00:36→22:31)
[2018-11-20] MEDS: metroNIDAZOLE 500 MG in Premix Bag 1 BAG IVPB SCH ×3 (05:42→21:22)
[2018-11-20] MEDS: Levothyroxine Sodium 100 MCG TAB PO SCH (05:42)
[2018-11-20 08:21] LABS: #Basophils 0.1 thou/uL (0.0-0.2); #Eosinphils 0.4 thou/uL (0.0-0.7); #Lymphocytes 1.9 thou/uL (1.20-3.40); #Monocytes 0.7 thou/uL (0.11-0.59); #Neutrophils 5.4 thou/uL (1.40-6.50); %Basophils 0.7 % (0.0-1.0); %Eosinophils 4.8 % (0.0-10.0); %Lymphocytes 22.5 % (21.0-51.0); %Monocytes 7.8 % (0.0-10.0); %Neutrophils 64.1 % (42.0-75.0); Hemoglobin 12.2 g/dL (12.0-16.0); Mean Corpuscular HGB CONC 32.7 g/dL (32.0-36.0); Mean Corpuscular Hemoglobin 31.1 pg (27.0-31.0); Mean Corpuscular Volume 95.2 fL (78.0-98.0); Mean Platelet Volume 6.7 fL (7.4-10.4); Platelet Count 385 thou/uL (130-400); Red Blood Cell (RBC) Count 3.92 mill/uL (4.20-5.40); White Blood Cell (WBC) Count 8.5 thou/uL (4.8-10.8)
[2018-11-20] MEDS: Carvedilol 6.25 MG TAB PO SCH ×2 (08:40→20:31)
[2018-11-20] MEDS: Apixaban 5 MG TAB PO SCH ×2 (08:40→20:30)
[2018-11-20 08:41] LABS: Anion Gap 11 mmol/L (10-20); BUN (Urea Nitrogen) 9 mg/dL (9.8-20.1); Calc. Creatinine Clearance 77 mL/min (70-130); Calcium 10.3 mg/dL (7.8-10.44); Carbon Dioxide 27 mmol/L (23-31); Chloride 102 mmol/L (98-107); Estimated GFR-MDRD 70; Glucose 98 mg/dL (83-110); Potassium 4.4 mmol/L (3.5-5.1); Sodium 136 mmol/L (136-145)
--- NOTE | 2018-11-20 09:35 | PDOC.CPN ---
- Subjective Date: 11/20/18 Time: 09:34 Interval history: The pt seen and examined. No overnight events. No cardiac complaints. I agree with the A/P by the [employer]. Echo 1 month ago: Normal EF,moderate ,mild pulm. HTN.,LVH,mod. TR. The BP is stable. Chest clear, RRR, no edema. Overall cardiac status is stable. I will sign off. - Objective Allergies/Adverse Reactions: Allergies Allergy/AdvReac Type Severity Reaction Status Date / Time No Known Allergies Allergy Verified 11/17/18 17:40 Visit Medications: Current Medications Acetaminophen (Tylenol) 650 mg PO Q4H PRN PRN Reason: Headache/Fever/Mild Pain (1-3) Last Admin: 11/20/18 08:42 Dose: 650 mg Hydrocodone Bitart/Acetaminophen ([place] 5/325) 1 tab PO Q4H PRN PRN Reason: Moderate Pain (4-6) Last Admin: 11/19/18 20:57 Dose: 1 tab Hydrocodone Bitart/Acetaminophen ([place] 7.5/325) 1 tab PO Q4H PRN PRN Reason: Severe Pain (7-10) Last Admin: 11/18/18 20:37 Dose: 1 tab Albuterol/Ipratropium (Duoneb) 3 ml NEB Q4H PRN PRN Reason: SOB &/or Wheezing Anastrozole (Arimidex) 1 mg PO HS [facility] Last Admin: 11/19/18 20:54 Dose: 1 mg Apixaban (Eliquis) 5 mg PO BID [facility] Last Admin: 11/20/18 08:40 Dose: 5 mg Calcium Carbonate (Tums) 1,000 mg PO Q4H PRN PRN Reason: Heartburn or Indigestion Carvedilol (Coreg) 6.25 mg PO BID [facility] Last Admin: 11/20/18 08:40 Dose: 6.25 mg Diphenhydramine HCl (Benadryl) 25 mg PO Q6H PRN PRN Reason: Itching & Insomnia Docusate Sodium (Colace) 100 mg PO BIDPRN PRN PRN Reason: Constipation Hydralazine HCl (Apresoline) 10 mg SLOW IVP Q4H PRN PRN Reason: Hypertension (SBP >180) Metronidazole 500 mg/ Device 100 mls @ 100 mls/hr IVPB Q8HR [facility] Last Admin: 11/20/18 05:42 Dose: 100 mls Levofloxacin 500 mg/ Device 100 mls @ 100 mls/hr IVPB 1500 [facility] Last Admin: 11/19/18 14:01 Dose: 100 mls Levothyroxine Sodium (Synthroid) 100 mcg PO 0600 [facility] Last Admin: 11/20/18 05:42 Dose: 100 mcg Losartan Potassium (Cozaar) 100 mg PO HS [facility] Last Admin: 11/19/18 20:54 Dose: 100 mg Miscellaneous Medication (Pharmacy To Dose) 0 each IVPB PRN PRN PRN Reason: PHARMACY TO DOSE Ondansetron HCl (Zofran Odt) 4 mg PO Q6H PRN PRN Reason: Nausea/Vomiting Ondansetron HCl (Zofran) 4 mg IVP Q6H PRN PRN Reason: Nausea/Vomiting Pantoprazole Sodium (Protonix) 40 mg PO DAILY [facility] Last Admin: 11/20/18 08:40 Dose: 40 mg Sertraline HCl (Zoloft) 100 mg PO DAILY [facility] Last Admin: 11/20/18 08:40 Dose: 100 mg Vital Signs & Weight: Vital Signs Temp Pulse Resp BP BP Pulse Ox 11/20/18 08:40 143/84 H 11/20/18 04:00 98.6 F 11/20/18 00:00 99.3 F 78 16 119/73 94 L Weight 184 lb - Physical Exam HEENT: mucus membranes moist Neck: supple neck Cardiac: regular rate and rhythm, S1/S2 Lungs: clear to auscultation - Labs Result Diagrams: 11/20/18 08:07 11/20/18 08:07 - Assessment/Plan Assessment/Plan: 1. Prox Afib with Afib RFA x3 by Dr Salguero at [facility] heart - well controlled HR; On Coreg and Eliquis 5mg BID; 2. cute diverticulitis - managed by PC 3. HTN - stable with current medication 4. Valve inefficiency - waiting for Echo result 5. Hypothyroid - MAR reviewed * The pt had Echo at Dr Salguero's office 1 month ago; Nl. EF. mod. ,TR, Mild pul. HTN.,LVH. pt. seen and eval. by me. I agree with the a/P by the [employer]. BP is well controlled. No cardiac complaints. Chest clear. RRR. No edema. I wiil speak to Dr. Salguero and get the echo results this AM. Overall cardiac status is stable. I will sign of. If any cardiac issues please contact us again. Thank you. Rebecca
--- NOTE | 2018-11-20 14:28 | PDOC.HOSPP ---
- Subjective Subjective: Seen and examined. Clinically improving. Less abdominal pain. Wants more regular foods, better appetite. Still with temperature on the high end of normal , was re assured that no fever of 100.4 or higher, WBC count now normal - she is responding to antibiotics. - Objective Vital Signs & Weight: Vital Signs (12 hours) Temp Pulse Resp BP BP BP Pulse Ox 11/20/18 11:49 98.7 F 74 16 137/75 96 11/20/18 08:40 143/84 H 11/20/18 08:34 99 F 78 16 143/84 H 94 L 11/20/18 04:00 98.6 F Weight Weight 184 lb I&O: 11/19/18 11/20/18 11/21/18 06:59 06:59 06:59 Intake Total 1979 780 Balance 1979 780 Result Diagrams: 11/20/18 08:07 11/20/18 08:07 Hospitalist ROS - Review of Systems All other systems reviewed; all pertinent +/- noted in HPI/Subj - Medication Medications: Active Medications Generic Name Dose Route Start Last Admin Trade Name Freq PRN Reason Stop Dose Admin Acetaminophen 650 mg 11/18/18 04:00 11/20/18 08:42 Tylenol PO 650 mg Q4H PRN Administration Headache/Fever/Mild Pain (1-3) Hydrocodone Bitart/Acetaminophen 1 tab 11/18/18 04:00 11/19/18 20:57 [place] 5/325 PO 1 tab Q4H PRN Administration Moderate Pain (4-6) Hydrocodone Bitart/Acetaminophen 1 tab 11/18/18 04:00 11/18/18 20:37 [place] 7.5/325 PO 1 tab Q4H PRN Administration Severe Pain (7-10) Anastrozole 1 mg 11/18/18 21:00 11/19/18 20:54 Arimidex PO 1 mg HS JAIRO Administration Apixaban 5 mg 11/18/18 09:00 11/20/18 08:40 Eliquis PO 5 mg BID JAIRO Administration Carvedilol 6.25 mg 11/20/18 09:00 11/20/18 08:40 Coreg PO 6.25 mg BID JAIRO Administration Metronidazole 500 mg/ Device 100 mls @ 100 mls/hr 11/18/18 06:00 11/20/18 14: 22 IVPB 100 mls Q8HR JAIRO Administration Levofloxacin 500 mg/ Device 100 mls @ 100 mls/hr 11/18/18 15:00 11/19/18 14: 01 IVPB 100 mls 1500 JAIRO Administration Levothyroxine Sodium 100 mcg 11/18/18 06:00 11/20/18 05:42 Synthroid PO 100 mcg 0600 JAIRO Administration Losartan Potassium 100 mg 11/19/18 21:00 11/19/18 20:54 Cozaar PO 100 mg HS JAIRO Administration Pantoprazole Sodium 40 mg 11/18/18 09:00 11/20/18 08:40 Protonix PO 40 mg DAILY JAIRO Administration Sertraline HCl 100 mg 11/18/18 09:00 11/20/18 08:40 Zoloft PO 100 mg DAILY JAIRO Administration - Exam General Appearance: NAD Eye: anicteric sclera Eye - other findings: EOMI ENT: no oropharyngeal lesions, moist mucosa Neck: supple, symmetric Heart: RRR, no murmur, no gallops Respiratory: CTAB, no wheezes, no rales, no ronchi Gastrointestinal: soft, non-distended, normal bowel sounds, no guarding, no rigidity, tender to palpation Extremities: no edema Skin: no lesions, no rashes Neurological: CN's grossly intact, no focal deficits Musculoskeletal: normal strength Psychiatric: normal affect, A&O x 3 Hosp A/P (1) Acute diverticulitis Code(s): K57.92 - DVTRCLI OF INTEST, PART UNSP, W/O PERF OR ABSCESS W/O BLEED Status: Acute (2) Abdominal pain Code(s): R10.9 - UNSPECIFIED ABDOMINAL PAIN Status: Acute (3) Fever Code(s): R50.9 - FEVER, UNSPECIFIED Status: Acute (4) Sepsis Code(s): A41.9 - SEPSIS, UNSPECIFIED ORGANISM Status: Acute (5) HTN (hypertension) Code(s): I10 - ESSENTIAL (PRIMARY) HYPERTENSION Status: Chronic (6) CHF (congestive heart failure) Code(s): I50.9 - HEART FAILURE, UNSPECIFIED Status: Chronic (7) Afib Code(s): I48.91 - UNSPECIFIED ATRIAL FIBRILLATION Status: Chronic (8) Hypothyroid Code(s): E03.9 - HYPOTHYROIDISM, UNSPECIFIED Status: Chronic (9) Breast cancer Status: Resolved - Plan Plan: Med/ surg unit Plan for home tomorrow AM if continues to improve Responding to IV flagyl and Levaquin WBC normalized temperature on the high end of normal - not a true fever Clinically improving CT abd/pelvis noted Will need outpatient C-scope in 6-8 weeks Cardiology consult, recommendations appreciated Decreased both Carvedilol and Losartan. BP having highs and low in past 48 hours , a slow titration of medications by cardiology is appreciated. Will need a BP log and closer follow up with PCP in outpatient setting Echo recently completed in outpatient clinic, moderate Aortic stenosis and preserved EF per cardiology Continue home meds as able Pain control Replace electrolytes as needed GI and DVT PPX
[2018-11-20] MEDS: HYDROcodone/Acetaminophen 5/325 mg Tablet PO PRN (18:43)
[2018-11-20] MEDS: Anastrozole 1 MG TAB PO SCH (20:30)
[2018-11-20] MEDS: Losartan 25 MG TAB PO SCH (20:31)
[2018-11-21] MEDS: Levothyroxine Sodium 100 MCG TAB PO SCH (05:31)
[2018-11-21] MEDS: metroNIDAZOLE 500 MG in Premix Bag 1 BAG IVPB SCH (05:31)
[2018-11-21 07:40] VITALS: BP 125/78; TEMP 98.7
[2018-11-21] MEDS: Carvedilol 6.25 MG TAB PO SCH (09:07)
[2018-11-21] MEDS: Apixaban 5 MG TAB PO SCH (09:07)
[2018-11-21] MEDS: HYDROcodone/Acetaminophen 5/325 mg Tablet PO PRN (11:31)
--- NOTE | 2018-11-21 22:58 | DIS ---
DATE OF ADMISSION: 11/17/2018 DATE OF DISCHARGE: 11/21/2018 REASON FOR HOSPITALIZATION: Abdominal pain. SIGNIFICANT FINDINGS: The patient was found to have acute diverticulitis. PROCEDURES PERFORMED/TREATMENTS RENDERED: The patient was admitted to medical unit with telemetry, started on antibiotics specific for diverticulitis, and had IV fluid resuscitation and pain control. CONDITION ON DISCHARGE: Stable. SPECIFIC INSTRUCTIONS FOR THE PATIENT/FAMILY: 1. The patient is recommended to take all medications as outlined, to be re-evaluated by primary care physician. 2. The patient is recommended to follow up with primary care physician in the next 5 to 7 days. 3. The patient is recommended to follow up with Cardiology in the next 1 to 2 weeks. 4. The patient is recommended to follow up with Gastroenterology in the next 6 to 8 weeks. 5. The patient is recommended to follow up with Oncology in the next 6 to 8 weeks. 6. The patient is recommended to return to [facility] immediately if signs or symptoms return, worsen, or any other new symptoms occur. HOSPITAL COURSE: Ms. Adorno is a very pleasant 78-year-old female who presents to [facility] on 12/14/2018 with abdominal pain. The patient was found to have acute diverticulitis on CT scan of the abdomen, please see full report for details. The patient placed on antibiotics specific for acute diverticulitis with good improvement of symptoms. The patient with uncontrolled blood pressure, both high and lows, Cardiology consultation requested, please see full consultation and progress notes for details. The patient had appropriate adjustment in blood pressure medications per Cardiology. The patient recommended safe for discharge by Cardiology on 11/20/2018. The patient recently had outpatient echocardiogram with Cardiology, which was interpreted by Cardiology as a preserved ejection fraction with moderate aortic stenosis-please see full report for details from outpatient cardiology report. The patient recommended safe for discharge as she has a normal WBC count, afebrile, tolerating regular diet, safely able to transition to oral antibiotics. The patient is recommended to follow up with primary care physician and all specialists as directed. The patient recommended to take a full course of oral antibiotics for resolution of symptoms. The patient recommended to return to [facility] immediately if signs or symptoms return, worsen, or any other new symptoms occur. Greater than 37 minutes spent coordinating care and discharge process. Job ID: [id number] [facility]
--- NOTE | 2018-11-22 02:07 | EKG ---
Test Reason : Blood Pressure : / mmHG Vent. Rate : 075 BPM Atrial Rate : 075 BPM P-R Int : 128 ms QRS Dur : 088 ms QT Int : 398 ms P-R-T Axes : 019 016 004 degrees QTc Int : 444 ms Normal sinus rhythm Confirmed by FLORINA GIBSON DO ([id number]), associate entertainment editor MARK NOBLES ([id number]) on 11/22/2018 2:07:19 AM Referred By: Confirmed By:FLORINA GIBSON DO
--- NOTE | 2018-11-24 03:58 | PQF ---
[employer] Director Of Curriculum And Instruction Crystal Reports Winform Viewer ARIA WEAVER AFSANEH ROY [id number] CLINICAL DOCUMENTATION CLARIFICATION FORM: POST DISCHARGE Addendum to original discharge summary date: ____ Late entry note date: __ DATE: 11/24/18 ATTN: Afsaneh Bazan Please exercise your independent, professional judgment in responding to the clarification form. Clinical indicators are provided on the bottom of this form for your review Can you please further specify if Sepsis is ruled in or ruled out? Sepsis [XX ] Ruled in diagnosis [ ] Continue to treat [ XX ] Resolved [ ] Ruled out diagnosis [ ] Cannot rule out diagnosis [ ] Other diagnosis [ ] Unable to determine In addition, please specify: Present on Admission (POA): [ ] Yes [ ] No [ ] Unable to determine For continuity of documentation, please document condition throughout progress notes and discharge summary. Thank You. CLINICAL INDICATORS H and P 11/17 pg.1- "Patient with worsening abdominal pain, fever, and diarrhea over the past few days" H and P 11/17 pg.2- " Lab result: WBC15.4H" H and P 11/17 pg.4- "Sepsis" H and P 11/17 pg.4- "IV antibiotics for gut kim with acute diverticulitis" Vital Sign- 11/21/18 - "Temp 98.5F, Pulse 77BPM, BP125/78mmHg, Respi 16cpm " DS 11/21 pg.1- "Significant findings: The patient found to have acute diverticulitis" RISK FACTORS Acute diverticulitis-DS 11/21 pg.1 TREATMENTS IV Fluids- MAY 23 Abdomen/Pelvis CT 11/17 Metronidazole (Flagyl) 500mg IV - MAY 23 Levofloxacin 500mg IV- MAY 23 Ciprofloxacin 400mg IV- MAY 23 (This form is maintained as a part of the permanent medical record) 2014 [employer] All Rights Reserved [email or web address] [not provided] MTDD
== END 2018-11-21 14:24 | disposition home or self-care (01) | DRG 872 ==
LOC: ERS 11:48 → T4-A 14:56 → ERS 17:02
PROVIDERS: ADMIT Internal Medicine; ATTEND Internal Medicine
DX: A41.9 Sepsis, unspecified organism (principal); K57.32 Diverticulitis of large intestine without perforation or abscess without bleeding; N39.0 Urinary tract infection, site not specified; I11.0 Hypertensive heart disease with heart failure; I50.9 Heart failure, unspecified; E03.9 Hypothyroidism, unspecified; J44.9 Chronic obstructive pulmonary disease, unspecified; M19.90 Unspecified osteoarthritis, unspecified site; F17.210 Nicotine dependence, cigarettes, uncomplicated; I35.0 Nonrheumatic aortic (valve) stenosis; Z96.652 Presence of left artificial knee joint; I48.0 Paroxysmal atrial fibrillation; I95.9 Hypotension, unspecified; Z79.01 Long term (current) use of anticoagulants; Z86.73 Personal history of transient ischemic attack (TIA), and cerebral infarction without residual deficits; Z85.3 Personal history of malignant neoplasm of breast; Z79.899 Other long term (current) drug therapy; Z79.890 Hormone replacement therapy
CPT/HCPCS: 36415; 74177; 80048; 80053; 81003; 81015; 83605; 83690; 85025; 87040; 93005; 94760; 96361; 96365; 96367; 96375; J0744; J1956; J2270; J2405; Q9966

== ENCOUNTER 2018-12-18 09:44 | Outpatient (CLI) | payer MEDICARE, OTHER ==
--- NOTE | 2018-12-18 12:28 | MRI ---
MRI PELVIS WITH AND WITHOUT CONTRAST: HISTORY: Abnormal findings on prior CT abdomen and pelvis. Renal mass. Cysts in the pelvis. COMPARISON: CT abdomen and pelvis from 11/17/2018. TECHNIQUE: Multiplanar, multisequence MR images were obtained of the pelvis with and without IV contrast. FINDINGS: The uterus is retroverted. Nabothian cysts are seen in the cervix. There is a 2.9 cm mass in the uter us, which demonstrates enhancement and likely represents a fibroid. This corresponds to the area of c alcification seen on CT. The ovaries are not definitely seen. Scattered diverticula are seen in the colon. No pelvic adenopathy is seen. Degenerative changes are s een in the spine. IMPRESSION: 1. Fibroid uterus. 2. Nabothian cysts. 3. Diverticulosis. POS: CET
--- NOTE | 2018-12-18 12:58 | MMO ---
Bilateral MAMMO Bilat Screen [facility]. CLINICAL HISTORY: Patient is 78 years old and is seen for screening. The patient has a history of right Stereotatic Biopsy in May, - benign, left Ultrasound Guided Core Biopsy in May, - benign and left Lumpectomy in June, - dcis - Stage 2. VIEWS: The views performed were: bilateral craniocaudal with tomosynthesis and bilateral mediolateral oblique with tomosynthesis. FILMS COMPARED: The present examination has been compared to prior imaging studies performed at [facility] on 09/11/2015, 09/13/2015, 04/02/2016 and 12/16/2017. This study has been interpreted with the assistance of computer-aided detection. MAMMOGRAM FINDINGS: There are scattered fibroglandular densities. Finding 1: There are stable post operative changes seen in the left breast. Finding 2: There are stable benign appearing calcifications seen in both breasts. Finding 3: There are biopsy clips seen in both breasts. There are no suspicious masses, suspicious calcifications, or new areas of architectural distortion. IMPRESSION: THERE IS NO MAMMOGRAPHIC EVIDENCE OF MALIGNANCY. A ROUTINE FOLLOW-UP MAMMOGRAM IN 1 YEAR IS RECOMMENDED. THE RESULTS OF THIS EXAM WERE SENT TO THE PATIENT. ACR BI-RADS Category 2 - Benign finding MAMMOGRAPHY NOTE: 1. A negative mammogram report should not delay a biopsy if a dominant of clinically suspicious mass is present. 2. Approximately 10% to 15% of breast cancers are not detected by mammography. 3. Adenosis and dense breasts may obscure an underlying neoplasm. Reported by: KEELEY BARTON MD Electonically Signed: [id number]
[2018-12-18] MEDS ORDERED: Gadobenate Dimeglumine 529 MG/1 ML (20ML VIAL) ONE (13:00)
--- NOTE | 2018-12-18 13:38 | MRI ---
MRI ABDOMEN WITHOUT AND WITH CONTRAST: Date: 12/18/18 COMPARISON: CT abdomen/pelvis dated 11/17/18. HISTORY: Abnormality seen on CT. Renal mass. TECHNIQUE: Multiplanar, multisequence MR images were obtained of the abdomen without and with IV contrast. FINDINGS: There are multiple well-circumscribed foci of high T2 signal in both kidneys measuring up to 1.6 cm i n size, which represent simple cysts. No suspicious areas of enhancement are seen in either kidney. The liver, gallbladder, adrenal glands, spleen, and pancreas are unremarkable. No abdominal adenopath y is seen. Degenerative changes are seen in the spine. IMPRESSION: Bilateral simple renal cysts. POS: CET
== END 2018-12-18 09:45 | disposition home or self-care (01) ==
LOC: BICMRI 09:44
PROVIDERS: ATTEND Urology
DX: N28.89 Other specified disorders of kidney and ureter (principal); N28.1 Cyst of kidney, acquired; N88.8 Other specified noninflammatory disorders of cervix uteri; K57.90 Diverticulosis of intestine, part unspecified, without perforation or abscess without bleeding; D25.9 Leiomyoma of uterus, unspecified
CPT/HCPCS: 72197; 74183; 77063; 77067; A9577

== ENCOUNTER 2019-02-20 23:00 | Emergency (ER) | payer MEDICARE, OTHER ==
[2019-02-20 23:36] LABS: Hemoglobin 13.5 g/dL (12.0-16.0); Mean Corpuscular HGB CONC 33.4 g/dL (32.0-36.0); Mean Corpuscular Hemoglobin 31.2 pg (27.0-31.0); Mean Corpuscular Volume 93.2 fL (78.0-98.0); Platelet Count 326 thou/uL (130-400); RBC Distribution Width 12.1 % (11.5-14.5); Red Blood Cell (RBC) Count 4.34 mill/uL (4.20-5.40); White Blood Cell (WBC) Count 11.7 thou/uL (4.8-10.8)
[2019-02-20] MEDS ORDERED: Ondansetron PF 4 MG/2 ML Vial ONE (23:42)
[2019-02-20] MEDS ORDERED: Morphine 4 MG/ML VIAL ONE (23:42)
[2019-02-20 23:50] LABS: Band 1 % (5-11); Eosinophils 5 % (0-10); Lymphocytes 9 % (21-51); MDiff Complete? YES; Monocytes 8 % (0-10); Neutrophil 76 % (42-75)
[2019-02-21 00:01] LABS: ALT (SGPT) 15 U/L (8-55); AST (SGOT) 21 U/L (5-34); Alkaline Phosphatase 95 U/L (40-110); Anion Gap 13 mmol/L (10-20); BUN (Urea Nitrogen) 11 mg/dL (9.8-20.1); Bilirubin, Total 0.6 mg/dL (0.2-1.2); Calc. Creatinine Clearance 0 mL/min (70-130); Calcium 10.2 mg/dL (7.8-10.44); Carbon Dioxide 24 mmol/L (23-31); Chloride 102 mmol/L (98-107); Estimated GFR-MDRD 66; Globulin 3.1 g/dL (2.4-3.5); Glucose 117 mg/dL (83-110); Lipase 12 U/L (8-78); Potassium 3.7 mmol/L (3.5-5.1); Protein, Total 7.1 g/dL (6.0-8.3); Sodium 135 mmol/L (136-145)
[2019-02-21 00:25] LABS: Bacteria/HPF None Seen HPF (None Seen); Bilirubin Negative (Negative); Blood, Urine Negative (Negative); Calcium Oxalate Crystals 4+ HPF (None Seen); Clarity Clear (Clear); Glucose, Urine (Dipstick) Normal (Negative); Leukocyte 25 Leu/uL (Negative); Mucous/LPF Rare LPF (<2+); Nitrite Negative (Negative); Protein, Urine (Dipstick) 30 mg/dL (Neg-Trace); RBC/HPF 0-3 HPF (0-3); Squamous Epithelial 0-3 HPF (0-3); Urobilinogen Normal mg/dL (Less than 2); WBC/HPF 0-3 HPF (0-3)
[2019-02-21] MEDS ORDERED: Morphine 4 MG/ML VIAL ONE (02:45)
--- NOTE | 2019-02-21 09:30 | CT ---
PRELIMINARY REPORT/[facility]/EMERGENCY AFTER HOURS PROCEDURE: EXAM: CT Abdomen and Pelvis with Intravenous Contrast CLINICAL HISTORY: 78/F pt presents with complaint of abdominal pain, nausea, diarrhea, body aches, chills starting . Pt was seen by her PCP 2 days ago and given RX for cipro and flagyl for concern of possible dive rticulitits. Pt states she has been dry heaving all day. No fever, dysuria, chest pain, or shortness of breath. Pt has hx of diverticulitis 2 months ago and reports this feels exactly the same. TECHNIQUE: Axial computed tomography images of the abdomen and pelvis with intravenous contrast. CONTRAST: With; ISOVUE 370,100mL COMPARISON: None provided. FINDINGS: LUNG BASES: Cardiomegaly. LIVER: Small fluid density hepatic cyst. GALLBLADDER AND BILE DUCTS: Unremarkable. No calcified stone. No ductal dilation. PANCREAS: Unremarkable. SPLEEN: Unremarkable. ADRENAL GLANDS: Unremarkable. KIDNEYS, URETERS, AND BLADDER: Fluid density simple cyst measuring 1.7 cm within the superior pole of the left kidney additional similar fluid density simple cyst right kidney. No hydronephrosis or neph rolithiasis. STOMACH AND BOWEL: Significant sigmoid colon diverticulosis with mild short segment wall thickening and adjacent fat str anding of the sigmoid colon just anterior and superior to the uterus best appreciated on sagittal ser ies 501 image [id number]). APPENDIX: No CT evidence for appendicitis. PERITONEUM: No free fluid. No free air. LYMPH NODES: No lymphadenopathy. REPRODUCTIVE: Dystrophic calcifications within uterine fibroid near the fundus. VASCULATURE: Moderate atherosclerotic calcifications without aneurysm. BONES: No fracture or suspicious osseous abnormality. Severe left-sided L4-5 and L5-S1 foraminal stenosis secondary to multilevel severe degenerative disc disease facet arthropathy in the setting of significant lumbar spine levocurvature. ABDOMINAL WALL AND SOFT TISSUES: Unremarkable. IMPRESSION: 1. Mild uncomplicated short segment diverticulitis in the sigmoid colon. 2. Severe left-sided L4-5 and L5-S1 foraminal stenosis secondary to multilevel severe degenerative di sc disease facet arthropathy in the setting of significant lumbar spine levocurvature. 3. Cardiomegaly. ELECTRONICALLY SIGNED BY: Darwin De DO Feb 21, 2019 12:53:35 AM POLICY ISSUE CLERK This report is intended for review by the ordering physician only, in accordance of law. If you recei ve this report in error, please call [facility] at [phone]. FINAL REPORT EMERGENCY AFTER HOURS CT ABDOMEN AND PELVIS WITH CONTRAST: FINDINGS/IMPRESSION: I agree with the findings and impression given in the preliminary report per [facility] [place]. 1. Acute diverticulitis. 2. Fibroid uterus. 3. Renal cysts.
== END 2019-02-21 02:55 | disposition home or self-care (01) ==
LOC: ERS 23:00
DX: K57.32 Diverticulitis of large intestine without perforation or abscess without bleeding (principal); I10 Essential (primary) hypertension; I49.9 Cardiac arrhythmia, unspecified; Z86.718 Personal history of other venous thrombosis and embolism
CPT/HCPCS: 74177; 80053; 81003; 81015; 83690; 85025; 96361; 96374; 96375; 96376; J2270; J2405

== ENCOUNTER 2019-02-22 14:32 | Emergency (ER) | payer MEDICARE, OTHER | END 2019-02-22 14:47 | disposition left against medical advice (07) | LOC: ERS 14:32 | DX: Z53.21 Procedure and treatment not carried out due to patient leaving prior to being seen by health care provider (principal) ==

== ENCOUNTER 2020-01-21 14:35 | Outpatient (CLI) | payer MEDICARE, OTHER ==
--- NOTE | 2020-01-21 15:21 | MMO ---
Bilateral MAMMO Bilat Screen [facility]. CLINICAL HISTORY: Patient is 79 years old and is seen for screening. The patient has a history of right Stereotatic Biopsy in May, - benign, left Ultrasound Guided Core Biopsy in May, - benign and left Lumpectomy in June, - dcis - Stage 2. VIEWS: The views performed were: bilateral craniocaudal with tomosynthesis and bilateral mediolateral oblique with tomosynthesis. FILMS COMPARED: The present examination has been compared to prior imaging studies performed at [facility] on 09/13/2015, 04/02/2016, 12/16/2017 and 12/18/2018. This study has been interpreted with the assistance of computer-aided detection. MAMMOGRAM FINDINGS: There are scattered fibroglandular densities. Finding 1: There are stable post operative changes seen in the left breast. Finding 2: There are stable benign appearing calcifications seen in both breasts. Finding 3: There are biopsy clips seen in both breasts. There are no suspicious masses, suspicious calcifications, or new areas of architectural distortion. IMPRESSION: THERE IS NO MAMMOGRAPHIC EVIDENCE OF MALIGNANCY. A ROUTINE FOLLOW-UP MAMMOGRAM IN 1 YEAR IS RECOMMENDED. THE RESULTS OF THIS EXAM WERE SENT TO THE PATIENT. ACR BI-RADS Category 2 - Benign finding MAMMOGRAPHY NOTE: 1. A negative mammogram report should not delay a biopsy if a dominant of clinically suspicious mass is present. 2. Approximately 10% to 15% of breast cancers are not detected by mammography. 3. Adenosis and dense breasts may obscure an underlying neoplasm. Reported by: KEELEY BARTON MD Electonically Signed: [id number]
== END 2020-01-21 14:36 | disposition home or self-care (01) ==
LOC: BICMAMMO 14:35
PROVIDERS: ATTEND Internal Medicine Hematology & Oncology
DX: Z12.31 Encounter for screening mammogram for malignant neoplasm of breast (principal); Z80.3 Family history of malignant neoplasm of breast; Z98.890 Other specified postprocedural states; Z86.000 Personal history of in-situ neoplasm of breast
CPT/HCPCS: 77063; 77067

== ENCOUNTER 2020-06-16 12:36 | Outpatient (CLI) | payer MEDICARE, OTHER ==
[2020-06-16 16:24] LABS: ALT (SGPT) 26 U/L (8-55); AST (SGOT) 25 U/L (5-34); Albumin 4.1 g/dL (3.4-4.8); Alkaline Phosphatase 88 U/L (40-110); Anion Gap 10 mmol/L (10-20); BUN (Urea Nitrogen) 21 mg/dL (9.8-20.1); Bilirubin, Total 0.4 mg/dL (0.2-1.2); Calc. Creatinine Clearance 0 mL/min (70-130); Calcium 9.7 mg/dL (7.8-10.44); Carbon Dioxide 27 mmol/L (23-31); Chloride 106 mmol/L (98-107); Globulin 2.7 g/dL (2.4-3.5); Glucose 86 mg/dL (83-110); Potassium 4.8 mmol/L (3.5-5.1); Protein, Total 6.8 g/dL (5.8-8.1); Sodium 138 mmol/L (136-145)
[2020-06-16 16:46] LABS: #Basophils 0.1 10x3/uL (0.0-0.2); #Eosinphils 0.2 10x3/uL (0.0-0.5); #Monocytes 0.5 10x3/uL (0.0-1.1); #Neutrophils 4.5 10x3/uL (1.5-8.4); %Basophils 0.9 % (0.0-2.0); %Eosinophils 3.3 % (0.0-6.0); %Lymphocytes 23.3 % (18.0-47.0); %Monocytes 6.8 % (0.0-10.0); %Neutrophils 65.3 % (40.0-75.0); Hemoglobin 13.1 g/dL (12.0-15.5); Mean Corpuscular HGB CONC 31.6 g/dL (32.0-36.0); Mean Corpuscular Hemoglobin 30.6 pg (27.0-33.0); Mean Platelet Volume 10.5 fl (7.4-10.4); Platelet Count 335 10x3/uL (150-450); RBC Distribution Width 12.7 % (11.5-14.5); Red Blood Cell (RBC) Count 4.28 10x6/uL (3.90-5.03); White Blood Cell (WBC) Count 6.9 10x3/uL (3.5-10.5)
[2020-06-17 01:24] LABS: SARS-CoV-2 PCR by NAA Not Detected (NotDetected)
== END 2020-06-16 12:37 | disposition home or self-care (01) ==
LOC: LABBT 12:36
PROVIDERS: ATTEND Internal Medicine Cardiovascular Disease
DX: Z01.812 Encounter for preprocedural laboratory examination (principal); Z20.822 Contact with and (suspected) exposure to COVID-19
CPT/HCPCS: 80053; 85025; U0003; U0005; 87635

== ENCOUNTER 2020-06-21 05:59 | Day surgery (SDC) | payer MEDICARE, OTHER ==
[2020-06-21] MEDS ORDERED: Heparin 10,000 UNITS/ 10 ML VIAL ONE (06:35)
[2020-06-21] MEDS ORDERED: Adenosine 6 MG/2 ML VIAL ONE (06:35)
[2020-06-21] MEDS ORDERED: Nitroglycerin 100MG/250ML BOT 0 ML ONE (06:35)
[2020-06-21] MEDS ORDERED: Fentanyl 100 MCG/2 ML VIAL ONE (07:16)
[2020-06-21] MEDS ORDERED: Midazolam HCl 2 mg/2 ml Vial ONE (07:17)
[2020-06-21] MEDS ORDERED: Iopamidol 370 76% 100 ML VIAL ONE (08:20)
[2020-06-21] MEDS ORDERED: Acetaminophen/Codeine 30-300mg Tablet ONE (10:48)
[2020-06-21] MEDS ORDERED: Sodium Chloride 0.9% 1,000 ML IV SCH (12:00)
[2020-06-21] MEDS ORDERED: Nitroglycerin 0.4 MG TAB (25 Tab Bottle) SL PRN (12:00)
[2020-06-21] MEDS ORDERED: Acetaminophen/Codeine 30-300mg Tablet PO PRN ×2 (12:00)
== END 2020-06-21 13:11 | disposition home or self-care (01) ==
LOC: CCL 05:59
PROVIDERS: ATTEND Internal Medicine Cardiovascular Disease
PROC: 4A023N7 Measurement of Cardiac Sampling and Pressure, Left Heart, Percutaneous Approach (ICD-10-PCS; principal; 2020-06-21)
PROC: B2111ZZ Fluoroscopy of Multiple Coronary Arteries using Low Osmolar Contrast (ICD-10-PCS; 2020-06-21)
DX: I35.0 Nonrheumatic aortic (valve) stenosis (principal); I25.10 Atherosclerotic heart disease of native coronary artery without angina pectoris; I47.2 Ventricular tachycardia; I10 Essential (primary) hypertension; I73.9 Peripheral vascular disease, unspecified; I48.91 Unspecified atrial fibrillation; M19.90 Unspecified osteoarthritis, unspecified site; E89.0 Postprocedural hypothyroidism; Z87.891 Personal history of nicotine dependence; Z79.01 Long term (current) use of anticoagulants; Z79.82 Long term (current) use of aspirin; Z79.899 Other long term (current) drug therapy; Z88.8 Allergy status to other drugs, medicaments and biological substances
CPT/HCPCS: 76942; 93460; 93561; 93567; 99152; J0153; J1644; J2250; J3010; Q9967

== ENCOUNTER 2021-01-23 14:20 | Outpatient (CLI) | payer MEDICARE, OTHER | END 2021-01-23 14:21 | disposition home or self-care (01) | LOC: BICMAMMO 14:20 | PROVIDERS: ATTEND Internal Medicine Hematology & Oncology | DX: Z12.31 Encounter for screening mammogram for malignant neoplasm of breast (principal); Z85.3 Personal history of malignant neoplasm of breast; Z91.89 Other specified personal risk factors, not elsewhere classified | CPT/HCPCS: 77063; 77067 ==

== ENCOUNTER 2023-10-02 12:35 | Inpatient (IN) | payer MEDICARE ==
[2023-10-02 13:22] LABS: #Basophils 0.05 10x3/uL (0.0-0.2); %Basophils 0.7 % (0.0-1.0); %Eosinophils 3.7 % (0.0-10.0); %Lymphocytes 12.7 % (21.0-51.0); %Monocytes 6.8 % (0.0-10.0); %Neutrophils 75.8 % (42.0-75.0); Hematocrit 43.2 % (36.0-47.0); Hemoglobin 14.4 g/dL (12.0-16.0); Mean Corpuscular HGB CONC 33.3 g/dL (32.0-36.0); Mean Corpuscular Hemoglobin 31.6 pg (27.0-31.0); Mean Corpuscular Volume 94.7 fL (78.0-98.0); Mean Platelet Volume 9.7 fL (7.4-10.4); Platelet Count 208 10x3/uL (130-400); RBC Distribution Width 13.7 % (11.5-14.5); Red Blood Cell (RBC) Count 4.56 mill/uL (4.20-5.40)
[2023-10-02 13:43] LABS: ALT (SGPT) 18 U/L (8-55); AST (SGOT) 25 U/L (5-34); Albumin 4.3 g/dL (3.4-4.8); Alkaline Phosphatase 69 U/L (40-110); Anion Gap 16 mmol/L (10-20); BUN (Urea Nitrogen) 55 mg/dL (9.8-20.1); Bilirubin, Total 0.7 mg/dL (0.2-1.2); Calc. Creatinine Clearance 0 mL/min (70-130); Calcium 11.2 mg/dL (7.8-10.44); Carbon Dioxide 29 mmol/L (23-31); Chloride 97 mmol/L (98-107); Estimated GFR 26; Glucose 105 mg/dL (83-110); Potassium 3.8 mmol/L (3.5-5.1); Protein, Total 8.3 g/dL (5.8-8.1); Sodium 138 mmol/L (136-145)
[2023-10-02 14:04] LABS: Troponin I 0.029 ng/mL (< 0.028)
[2023-10-02] MEDS ORDERED: Ondansetron PF 4 MG/2 ML Vial ONE (14:10)
[2023-10-02] MEDS ORDERED: Acetaminophen 500 MG TAB ONE (14:10)
[2023-10-02 16:56] LABS: Lactic Acid 1.3 mmol/L (0.5-2.2)
[2023-10-02 17:03] LABS: Troponin I 0.019 ng/mL (< 0.028)
[2023-10-02 20:03] LABS: Troponin I 0.016 ng/mL (< 0.028)
[2023-10-02] MEDS: traMADol HCl 50 MG TAB PO PRN (20:51)
[2023-10-02] MEDS: Acetaminophen 325 MG TAB PO SCH (20:52)
[2023-10-02] MEDS: Apixaban 5 MG TAB PO SCH (20:52)
[2023-10-02] MEDS: Atorvastatin Calcium 40 MG TAB PO SCH (20:52)
[2023-10-02 22:01] LABS: Troponin I 0.018 ng/mL (< 0.028)
[2023-10-03 00:36] VITALS: BMI 26.2
[2023-10-03] MEDS: Levothyroxine Sodium 100 MCG TAB PO SCH (06:14)
[2023-10-03 06:58] LABS: #Basophils 0.07 10x3/uL (0.0-0.2); %Eosinophils 7.2 % (0.0-10.0); %Lymphocytes 24.6 % (21.0-51.0); %Monocytes 10.6 % (0.0-10.0); %Neutrophils 56.5 % (42.0-75.0); Hematocrit 37.1 % (36.0-47.0); Hemoglobin 12.1 g/dL (12.0-16.0); Mean Corpuscular HGB CONC 32.6 g/dL (32.0-36.0); Mean Corpuscular Hemoglobin 32.1 pg (27.0-31.0); Mean Corpuscular Volume 98.4 fL (78.0-98.0); Mean Platelet Volume 9.8 fL (7.4-10.4); Platelet Count 165 10x3/uL (130-400); RBC Distribution Width 13.7 % (11.5-14.5); Red Blood Cell (RBC) Count 3.77 mill/uL (4.20-5.40)
[2023-10-03 09:58] LABS: ALT (SGPT) 15 U/L (8-55); AST (SGOT) 20 U/L (5-34); Albumin 3.3 g/dL (3.4-4.8); Alkaline Phosphatase 53 U/L (40-110); Anion Gap 12 mmol/L (10-20); BUN (Urea Nitrogen) 48 mg/dL (9.8-20.1); Bilirubin, Total 0.4 mg/dL (0.2-1.2); Calc. Creatinine Clearance 36 mL/min (70-130); Calcium 9.6 mg/dL (7.8-10.44); Carbon Dioxide 27 mmol/L (23-31); Chloride 103 mmol/L (98-107); Estimated GFR 36; Globulin 2.9 g/dL (2.4-3.5); Glucose 86 mg/dL (83-110); Protein, Total 6.2 g/dL (5.8-8.1); Sodium 138 mmol/L (136-145)
[2023-10-03 13:41] LABS: ALT (SGPT) 15 U/L (8-55); AST (SGOT) 21 U/L (5-34); Albumin 3.3 g/dL (3.4-4.8); Alkaline Phosphatase 52 U/L (40-110); Anion Gap 9 mmol/L (10-20); BUN (Urea Nitrogen) 44 mg/dL (9.8-20.1); Bilirubin, Total 0.4 mg/dL (0.2-1.2); Calc. Creatinine Clearance 42 mL/min (70-130); Calcium 9.8 mg/dL (7.8-10.44); Carbon Dioxide 31 mmol/L (23-31); Chloride 102 mmol/L (98-107); Estimated GFR 42; Globulin 2.9 g/dL (2.4-3.5); Glucose 92 mg/dL (83-110); Potassium 4.2 mmol/L (3.5-5.1); Protein, Total 6.2 g/dL (5.8-8.1); Sodium 138 mmol/L (136-145)
[2023-10-03] MEDS: ALPRAZolam 0.25 MG TAB PO PRN (20:55)
[2023-10-03] MEDS ORDERED: Carvedilol 25 MG TAB PO SCH (21:00)
[2023-10-04 08:05] VITALS: TEMP 97.8
[2023-10-04] MEDS: Aspirin 81 mg Enteric Coated Tablet PO SCH (08:13)
[2023-10-04] MEDS: Pantoprazole DR 40 MG TAB PO SCH (08:13)
[2023-10-04] MEDS: Sertraline 100 MG TAB PO SCH (08:14)
[2023-10-04 08:29] LABS: Anion Gap 10 mmol/L (10-20); BUN (Urea Nitrogen) 30 mg/dL (9.8-20.1); Calc. Creatinine Clearance 59 mL/min (70-130); Calcium 9.7 mg/dL (7.8-10.44); Carbon Dioxide 26 mmol/L (23-31); Chloride 105 mmol/L (98-107); Estimated GFR 64; Glucose 90 mg/dL (83-110); Potassium 4.1 mmol/L (3.5-5.1); Sodium 137 mmol/L (136-145)
[2023-10-04 08:34] LABS: Hematocrit 37.9 % (36.0-47.0); Hemoglobin 12.4 g/dL (12.0-16.0); Mean Corpuscular HGB CONC 32.7 g/dL (32.0-36.0); Mean Corpuscular Hemoglobin 31.8 pg (27.0-31.0); Mean Corpuscular Volume 97.2 fL (78.0-98.0); Mean Platelet Volume 9.9 fL (7.4-10.4); Platelet Count 179 10x3/uL (130-400); RBC Distribution Width 13.5 % (11.5-14.5)
[2023-10-04] MEDS ORDERED: Pantoprazole DR 40 MG TAB PO SCH (09:00)
[2023-10-04] MEDS ORDERED: Non-Formulary Item 1 EACH (Losartan Potassium [Cozaar] 50 MG Tablet) PO SCH (09:00)
[2023-10-04] MEDS ORDERED: Amlodipine 5 MG TAB PO SCH (09:00)
[2023-10-04] MEDS ORDERED: Spironolactone 25 MG TAB PO SCH (09:00)
[2023-10-04 09:42] LABS: Elliptocytes SLIGHT = 2-5 cells HPF (0-1); Eosinophils 9 % (0-10); Lymphocytes 18 % (21-51); Monocytes 7 % (0-10); Neutrophil 66 % (42-75); Ovalocytes SLIGHT = 2-5 cells HPF (0-1); Platelet Adequacy Comment Platelets Normal; Smudge Cells 3.9 %
[2023-10-04 11:34] VITALS: BP 131/63
== END 2023-10-04 14:20 | disposition home or self-care (01) | DRG 641 ==
LOC: ERS 12:35 → 2NO 15:14 → OBSVTOIN 10-03 14:16
PROVIDERS: ADMIT Internal Medicine; ATTEND Family Medicine
DX: E86.1 Hypovolemia (principal); N17.9 Acute kidney failure, unspecified; I10 Essential (primary) hypertension; F32.A Depression, unspecified; E03.9 Hypothyroidism, unspecified; K21.9 Gastro-esophageal reflux disease without esophagitis; I95.1 Orthostatic hypotension; E86.0 Dehydration; I48.91 Unspecified atrial fibrillation; Z79.899 Other long term (current) drug therapy; Z79.890 Hormone replacement therapy; Z79.82 Long term (current) use of aspirin; Z79.01 Long term (current) use of anticoagulants; Z88.8 Allergy status to other drugs, medicaments and biological substances
CPT/HCPCS: 36415; 70450; 71045; 80048; 80053; 83605; 83880; 84484; 85025; 93005; J2405

== ENCOUNTER 2023-12-24 06:59 | Inpatient (IN) | payer MEDICARE ==
[2023-12-24] MEDS ORDERED: Aspirin Chewable 81 MG TAB ONE (07:45)
[2023-12-24] MEDS ORDERED: Labetalol HCl 100 MG/20 ML VIAL ONE (07:49)
[2023-12-24 08:06] LABS: #Basophils 0.06 10x3/uL (0.0-0.2); %Basophils 0.8 % (0.0-1.0); %Eosinophils 3.2 % (0.0-10.0); %Monocytes 7.4 % (0.0-10.0); %Neutrophils 78.3 % (42.0-75.0); Hematocrit 33.7 % (36.0-47.0); Hemoglobin 10.8 g/dL (12.0-16.0); Mean Corpuscular Hemoglobin 32.4 pg (27.0-31.0); Mean Corpuscular Volume 101.2 fL (78.0-98.0); Mean Platelet Volume 9.6 fL (7.4-10.4); Platelet Count 211 10x3/uL (130-400); RBC Distribution Width 13.4 % (11.5-14.5); Red Blood Cell (RBC) Count 3.33 mill/uL (4.20-5.40)
[2023-12-24 08:17] LABS: ALT (SGPT) 54 U/L (8-55); AST (SGOT) 54 U/L (5-34); Albumin 3.4 g/dL (3.4-4.8); Alkaline Phosphatase 76 U/L (40-110); Anion Gap 10 mmol/L (10-20); BUN (Urea Nitrogen) 17 mg/dL (9.8-20.1); Bilirubin, Total 0.9 mg/dL (0.2-1.2); Calc. Creatinine Clearance 0 mL/min (70-130); Calcium 9.7 mg/dL (7.8-10.44); Carbon Dioxide 27 mmol/L (23-31); Chloride 107 mmol/L (98-107); Estimated GFR 67; Globulin 3.2 g/dL (2.4-3.5); Glucose 101 mg/dL (83-110); Protein, Total 6.6 g/dL (5.8-8.1); Sodium 140 mmol/L (136-145)
[2023-12-24 08:25] LABS: Troponin I 0.365 ng/mL (< 0.028)
[2023-12-24] MEDS ORDERED: Nitroglycerin 0.4 MG TAB (25 Tab Bottle) SL PRN (09:09)
[2023-12-24] MEDS ORDERED: Fluticasone Propionate Nasal Spray 16 gm Bottle NASAL PRN (09:14)
[2023-12-24] MEDS ORDERED: Metoprolol Tartrate 25 MG TAB PO SCH ×2 (09:15→21:00)
[2023-12-24] MEDS ORDERED: Enoxaparin 60 MG (0.6 mL) SYRINGE SC SCH (09:15)
[2023-12-24] MEDS ORDERED: Nitroglycerin 50 MG/250 ML BOT 250 ML ONE (09:30)
[2023-12-24] MEDS: Nitroglycerin 50 MG/250 ML BOT 250 ML IVPB SCH (09:40)
[2023-12-24 09:54] LABS: Critical Call Chem Troponin I RESULT DECREASING; Troponin I 0.322 ng/mL (< 0.028)
[2023-12-24 10:42] VITALS: BMI 25.9
[2023-12-24] MEDS: Acetaminophen 325 MG TAB PO PRN (11:35)
[2023-12-24] MEDS ORDERED: Ondansetron PF 4 MG/2 ML Vial IVP PRN (12:11)
[2023-12-24] MEDS: ALPRAZolam 0.25 MG TAB PO PRN (12:43)
[2023-12-24] MEDS: Labetalol HCl 100 MG/20 ML VIAL SLOW IVP PRN (12:43)
[2023-12-24] MEDS: niCARdipine 25 MG in Sodium Chloride 0.9% 250 ML 250 ML IVPB SCH (13:22)
[2023-12-24] MEDS: Carvedilol 25 MG TAB PO SCH ×2 (13:23→20:21)
[2023-12-24 13:55] LABS: Critical Call Chem Troponin I RESULT DECREASING; Troponin I 0.306 ng/mL (< 0.028)
[2023-12-24] MEDS: Pantoprazole DR 40 MG TAB PO SCH (18:19)
[2023-12-24] MEDS: Atorvastatin Calcium 40 MG TAB PO SCH (20:21)
[2023-12-24] MEDS: Apixaban 5 MG TAB PO SCH (20:21)
[2023-12-24] MEDS ORDERED: Enoxaparin 80 MG (0.8 mL) SYRINGE SC SCH (21:00)
[2023-12-25] MEDS: Levothyroxine Sodium 100 MCG TAB PO SCH (06:10)
[2023-12-25 07:55] LABS: #Basophils 0.07 10x3/uL (0.0-0.2); %Eosinophils 5.6 % (0.0-10.0); %Lymphocytes 11.8 % (21.0-51.0); %Monocytes 8.3 % (0.0-10.0); Hematocrit 34.6 % (36.0-47.0); Hemoglobin 11.6 g/dL (12.0-16.0); Mean Corpuscular HGB CONC 33.5 g/dL (32.0-36.0); Mean Corpuscular Hemoglobin 32.3 pg (27.0-31.0); Mean Corpuscular Volume 96.4 fL (78.0-98.0); Mean Platelet Volume 9.8 fL (7.4-10.4); Platelet Count 197 10x3/uL (130-400); RBC Distribution Width 13.3 % (11.5-14.5); Red Blood Cell (RBC) Count 3.59 mill/uL (4.20-5.40)
[2023-12-25 08:11] LABS: Anion Gap 9 mmol/L (10-20); BUN (Urea Nitrogen) 10 mg/dL (9.8-20.1); Calc. Creatinine Clearance 69 mL/min (70-130); Calcium 9.2 mg/dL (7.8-10.44); Carbon Dioxide 26 mmol/L (23-31); Chloride 107 mmol/L (98-107); Estimated GFR 78; Glucose 101 mg/dL (83-110); Potassium 4.3 mmol/L (3.5-5.1); Sodium 138 mmol/L (136-145)
[2023-12-25] MEDS: Aspirin 81 mg Enteric Coated Tablet PO SCH (08:22)
[2023-12-25] MEDS: Amlodipine 5 MG TAB PO SCH (08:23)
[2023-12-25] MEDS ORDERED: ALPRAZolam 0.25 MG TAB PO PRN (09:34)
[2023-12-25] MEDS: ALPRAZolam 0.25 MG TAB PO SCH (10:02)
[2023-12-25] MEDS: Losartan 25 MG TAB PO SCH (16:57)
[2023-12-25] MEDS: Atorvastatin Calcium 40 MG TAB PO SCH (20:30)
[2023-12-25] MEDS: Calcium Carbonate 500 MG ChewTAB PO PRN (21:04)
[2023-12-25] MEDS ORDERED: Labetalol HCl 100 MG/20 ML VIAL SLOW IVP PRN (21:50)
[2023-12-26] MEDS: Pantoprazole DR 40 MG TAB PO SCH (08:34)
[2023-12-26] MEDS: Sertraline 100 MG TAB PO SCH (08:34)
[2023-12-26] MEDS: Aspirin 81 mg Enteric Coated Tablet PO SCH (08:35)
[2023-12-26] MEDS: Fluticasone Propionate Nasal Spray 16 gm Bottle NASAL PRN (08:43)
[2023-12-27 04:31] LABS: #Basophils 0.07 10x3/uL (0.0-0.2); %Basophils 1.1 % (0.0-1.0); %Lymphocytes 21.3 % (21.0-51.0); %Neutrophils 61.3 % (42.0-75.0); Mean Corpuscular HGB CONC 32.4 g/dL (32.0-36.0); Mean Corpuscular Hemoglobin 31.7 pg (27.0-31.0); Mean Corpuscular Volume 97.9 fL (78.0-98.0); Platelet Count 211 10x3/uL (130-400); RBC Distribution Width 13.3 % (11.5-14.5); Red Blood Cell (RBC) Count 3.78 mill/uL (4.20-5.40)
[2023-12-27 04:49] LABS: Anion Gap 11 mmol/L (10-20); BUN (Urea Nitrogen) 15 mg/dL (9.8-20.1); Calc. Creatinine Clearance 67 mL/min (70-130); Calcium 9.8 mg/dL (7.8-10.44); Carbon Dioxide 26 mmol/L (23-31); Chloride 105 mmol/L (98-107); Estimated GFR 75; Glucose 92 mg/dL (83-110); Potassium 4.2 mmol/L (3.5-5.1); Sodium 138 mmol/L (136-145)
[2023-12-27] MEDS ORDERED: Regadenoson 0.4 MG/5 ML SYRINGE ONE (09:05)
[2023-12-27] MEDS: Aspirin/APAP/Caffeine Tab (Excedrin Migraine) PO PRN (11:23)
[2023-12-27] MEDS: Docusate 100 MG CAP PO SCH (18:05)
[2023-12-28 06:34] LABS: #Basophils 0.07 10x3/uL (0.0-0.2); %Eosinophils 6.6 % (0.0-10.0); %Lymphocytes 22.1 % (21.0-51.0); %Monocytes 9.2 % (0.0-10.0); %Neutrophils 60.7 % (42.0-75.0); Hematocrit 38.2 % (36.0-47.0); Hemoglobin 12.2 g/dL (12.0-16.0); Mean Corpuscular HGB CONC 31.9 g/dL (32.0-36.0); Mean Corpuscular Hemoglobin 31.9 pg (27.0-31.0); Mean Platelet Volume 9.7 fL (7.4-10.4); Platelet Count 229 10x3/uL (130-400); RBC Distribution Width 13.3 % (11.5-14.5); Red Blood Cell (RBC) Count 3.82 mill/uL (4.20-5.40)
[2023-12-28 06:48] LABS: Anion Gap 11 mmol/L (10-20); BUN (Urea Nitrogen) 18 mg/dL (9.8-20.1); Calc. Creatinine Clearance 65 mL/min (70-130); Calcium 9.9 mg/dL (7.8-10.44); Carbon Dioxide 26 mmol/L (23-31); Chloride 105 mmol/L (98-107); Estimated GFR 72; Glucose 82 mg/dL (83-110); Potassium 4.3 mmol/L (3.5-5.1); Sodium 138 mmol/L (136-145)
[2023-12-28] MEDS: Milk Of Magnesia 30 ML UDCUP PO PRN (08:19)
[2023-12-28] MEDS: Aspirin/APAP/Caffeine Tab (Excedrin Migraine) PO SCH (13:27)
[2023-12-28] MEDS: Docusate 100 MG CAP PO PRN (13:38)
[2023-12-29 04:42] LABS: #Basophils 0.08 10x3/uL (0.0-0.2); %Basophils 1.2 % (0.0-1.0); %Eosinophils 5.5 % (0.0-10.0); %Lymphocytes 23.5 % (21.0-51.0); %Monocytes 9.7 % (0.0-10.0); %Neutrophils 59.6 % (42.0-75.0); Hematocrit 36.8 % (36.0-47.0); Hemoglobin 11.8 g/dL (12.0-16.0); Mean Corpuscular HGB CONC 32.1 g/dL (32.0-36.0); Mean Corpuscular Volume 99.7 fL (78.0-98.0); Mean Platelet Volume 9.5 fL (7.4-10.4); Platelet Count 197 10x3/uL (130-400); RBC Distribution Width 13.2 % (11.5-14.5); Red Blood Cell (RBC) Count 3.69 mill/uL (4.20-5.40)
[2023-12-29 04:57] LABS: Anion Gap 10 mmol/L (10-20); BUN (Urea Nitrogen) 18 mg/dL (9.8-20.1); Calc. Creatinine Clearance 65 mL/min (70-130); Calcium 9.6 mg/dL (7.8-10.44); Carbon Dioxide 26 mmol/L (23-31); Chloride 105 mmol/L (98-107); Estimated GFR 72; Glucose 86 mg/dL (83-110); Potassium 4.1 mmol/L (3.5-5.1); Sodium 137 mmol/L (136-145)
[2023-12-29 11:41] VITALS: BP 139/66; TEMP 97.3
== END 2023-12-29 15:35 | disposition home or self-care (01) | DRG 282 ==
LOC: ERS 06:59 → ERHOLD 08:43 → OBSVTOIN 09:15 → CCU 10:24 → 2NO 12-25 23:19
PROVIDERS: ADMIT Internal Medicine; ATTEND Hospitalist
DX: I16.1 Hypertensive emergency (principal); I21.A1 Myocardial infarction type 2; I10 Essential (primary) hypertension; I27.20 Pulmonary hypertension, unspecified; E89.0 Postprocedural hypothyroidism; K21.9 Gastro-esophageal reflux disease without esophagitis; F41.9 Anxiety disorder, unspecified; I25.10 Atherosclerotic heart disease of native coronary artery without angina pectoris; I48.0 Paroxysmal atrial fibrillation; Z87.891 Personal history of nicotine dependence; Z86.718 Personal history of other venous thrombosis and embolism; Z79.01 Long term (current) use of anticoagulants; Z95.2 Presence of prosthetic heart valve; Z88.8 Allergy status to other drugs, medicaments and biological substances; Z79.82 Long term (current) use of aspirin; Z79.890 Hormone replacement therapy; Z79.899 Other long term (current) drug therapy; Z85.3 Personal history of malignant neoplasm of breast; Z90.12 Acquired absence of left breast and nipple
CPT/HCPCS: 36415; 71045; 78452; 80048; 80053; 84439; 84443; 84484; 85025; 93005; 93017; 93306; 96374; A9500; J2785; J7050